=== PATIENT | female | born 1945 | race Caucasian/White ===

== ENCOUNTER 2020-05-05 09:18 | Inpatient (IN) | payer MEDICARE, OTHER ==
[2020-05-05] MEDS ORDERED: KETOROLAC 15 MG/ML 1 ML VIAL IVP STA (09:23)
[2020-05-05] MEDS ORDERED: ORPHENADRINE 30 MG/ML 2 ML VIAL IVP STA (09:23)
[2020-05-05] MEDS ORDERED: SODIUM CHLORIDE 0.9% 1,000 ML IV STA (09:23)
[2020-05-05] MEDS ORDERED: SODIUM CHLORIDE 0.9% 500 ML 500 ML IV STA (09:23)
--- NOTE | 2020-05-05 09:28 | ED ---
Back Pain HPI - General Stated Complaint: back pain Time Seen by Provider: 05/05/20 09:18 Source: patient, EMS, RN notes reviewed Mode of arrival: EMS - History of Present Illness Initial Comments: This is a 75-year-old female with a history of sciatica who states she's been having pain for last several days. She states she had physical therapy yesterday and the pain is worse afterwards. The pain is very severe 10/10 severity sharp radiating into her left buttock. He was given morphine as well as Zofran and route with some improvement. She had been complaining of nausea vomiting. She was prescribed dexamethasone of Flexeril with a the first doses being taken last evening. No reports of fevers chills sweats. No dysuria no loss of function to the upper or lower extremities. No abdominal pain. There did seem to be some change in her mental status which is related to the new medication. MD Complaint: back pain - Related Data Home Medications Medication Instructions Recorded Confirmed Acetaminophen-Codeine 300-30mg 1 tab PO Q8H PRN 05/05/20 05/05/20 [Tylenol w/codeine #3] Aspirin EC [Ecotrin Low Dose] 81 mg PO BID 05/05/20 05/05/20 Atorvastatin [Lipitor] 40 mg PO DAILY 05/05/20 05/05/20 Baclofen [Lioresal] 10 mg PO DAILY 05/05/20 05/05/20 Citalopram Hydrobromide [CeleXA] 20 mg PO DAILY 05/05/20 05/05/20 Cranberry Fruit Concentrate [Azo 500 mg PO DAILY 05/05/20 05/05/20 Cranberry] Cyclobenzaprine [Flexeril] 10 mg PO TID PRN 05/05/20 05/05/20 Dexamethasone [Decadron] 4 mg PO BID 05/05/20 05/05/20 Ergocalciferol [Vitamin D2] 50,000 unit PO Q14D 05/05/20 05/05/20 Ezetimibe [Zetia] 10 mg PO DAILY 05/05/20 05/05/20 HYDROcodone/APAP 5-325MG [Mary D 1 tab PO Q6H PRN 05/05/20 05/05/20 5-325] Hydrocortisone [Anusol-Hc] 1 applic RECTAL BID PRN 05/05/20 05/05/20 LORazepam [Ativan] 1 mg PO HS 05/05/20 05/05/20 Levothyroxine Sodium [Synthroid] 50 mcg PO DAILY 05/05/20 05/05/20 Metoprolol Tartrate [Lopressor] 50 mg PO DAILY 05/05/20 05/05/20 Multivitamins, Thera [Multivitamin 1 tab PO DAILY 05/05/20 05/05/20 (formulary)] Omeprazole 40 mg PO DAILY 05/05/20 05/05/20 Triamterene-Hctz 37.5-25Mg 1 cap PO DAILY 05/05/20 05/05/20 [Dyazide 37.5-25 Capsule] Allergies Allergy/AdvReac Type Severity Reaction Status Date / Time No Known Allergies Allergy Verified 05/05/20 11:29 Review of Systems ROS Statement: Those systems with pertinent positive or pertinent negative responses have been documented in the HPI. ROS Other: All systems not noted in ROS Statement are negative. General Exam - General Exam Comments Initial Comments: This is a well-developed well-nourished awake alert but somewhat confused female Limitations: physical limitation General appearance: alert, anxious, in distress Head exam: Present: atraumatic, normocephalic, normal inspection Eye exam: Present: normal appearance, PERRL, EOMI. Absent: scleral icterus, conjunctival injection, periorbital swelling ENT exam: Present: mucous membranes dry Neck exam: Present: normal inspection. Absent: tenderness, meningismus, lymphadenopathy Respiratory exam: Present: normal lung sounds bilaterally. Absent: respiratory distress, wheezes, rales, rhonchi, stridor Cardiovascular Exam: Present: normal rhythm, tachycardia, normal heart sounds. Absent: systolic murmur, diastolic murmur, rubs, gallop, clicks GI/Abdominal exam: Present: soft, normal bowel sounds. Absent: distended, tenderness, guarding, rebound, rigid, bruit, pulsatile mass Rectal exam: Present: deferred Extremities exam: Present: normal inspection, tenderness (Tenderness palpation of left gluteus to sciatic outlet. Decreased range of motion secondary to pain), normal capillary refill. Absent: full ROM, pedal edema, joint swelling, calf tenderness Back exam: Present: normal inspection Neurological exam: Present: alert, altered, CN II-XII intact. Absent: motor sensory deficit Psychiatric exam: Present: normal affect, anxious Skin exam: Present: warm, dry, intact, normal color. Absent: rash Course Vital Signs 05/05/20 05/05/20 05/05/20 09: 10:41 11:17 Temperature 98.6 F Pulse Rate 111 H 991 H 89 Respiratory 18 6 L 16 Rate Blood Pressure 186/91 138/68 137/66 O2 Sat by Pulse 100 100 95 Oximetry Medical Decision Making - Medical Decision Making Patient states her pain is somewhat better. Patient does seem to have some flight of ideas. CT imaging was negative. The patient will be admitted I discuss case with Dr. Berumen who did come the emergency department see the patient. Patient will be admitted for evaluation of confusional state and intractable sciatic pain. She has renal insufficiency I have no current labs to compare. A d-dimer is likely elevated on this basis - Lab Data Result diagrams: 05/05/20 09:31 05/05/20 09:31 Lab Results 05/05/20 05/05/20 05/05/20 Range/Units 09:31 09:31 09:31 WBC 8.7 (3.8-10.6) k/uL RBC 4.07 (3.80-5.40) m/uL Hgb 12.4 (11.4-16.0) gm/dL Hct 38.7 (34.0-46.0) % MCV 95.0 (80.0-100.0) fL MCH 30.3 (25.0-35.0) pg MCHC 31.9 (31.0-37.0) g/dL RDW 13.6 (11.5-15.5) % Plt Count 209 (150-450) k/uL Neutrophils % 88 % Lymphocytes % 10 % Monocytes % 1 % Eosinophils % 1 % Basophils % 0 % Neutrophils # 7.7 (1.3-7.7) k/uL Lymphocytes # 0.9 L (1.0-4.8) k/uL Monocytes # 0.1 (0-1.0) k/uL Eosinophils # 0.0 (0-0.7) k/uL Basophils # 0.0 (0-0.2) k/uL D-Dimer (<0.60) mg/L FEU Sodium 142 (137-145) mmol/L Potassium 4.1 (3.5-5.1) mmol/L Chloride 108 H (98-107) mmol/L Carbon Dioxide 24 (22-30) mmol/L Anion Gap 10 mmol/L BUN 38 H (7-17) mg/dL Creatinine 1.63 H (0.52-1.04) mg/dL Est GFR (CKD-EPI)AfAm 35 (>60 ml/min/1.73 sqM) Est GFR (CKD-EPI)NonAf 31 (>60 ml/min/1.73 sqM) Glucose 172 H (74-99) mg/dL POC Glucose (mg/dL) (75-99) mg/dL POC Glu [employer] ID Calcium 9.3 (8.4-10.2) mg/dL Magnesium 1.6 (1.6-2.3) mg/dL Total Bilirubin 0.7 (0.2-1.3) mg/dL AST 25 (14-36) U/L ALT 19 (4-34) U/L Alkaline Phosphatase 74 (38-126) U/L Ammonia (<30) umol/L Creatine Kinase 68 (30-135) U/L Total Protein 7.0 (6.3-8.2) g/dL Albumin 4.2 (3.5-5.0) g/dL Lipase (23-300) U/L Urine Color Yellow Urine Appearance Cloudy H (Clear) Urine pH 5.5 (5.0-8.0) Ur Specific Kelly 1.019 (1.001-1.035) Urine Protein Negative (Negative) Urine Glucose (UA) Negative (Negative) Urine Ketones Negative (Negative) Urine Blood Negative (Negative) Urine Nitrite Negative (Negative) Urine Bilirubin Negative (Negative) Urine Urobilinogen <2.0 (<2.0) mg/dL Ur Leukocyte Esterase Moderate H (Negative) Urine RBC 3 (0-5) /hpf Urine WBC 7 H (0-5) /hpf Ur Squamous Epith Cells 6 H (0-4) /hpf Urine Bacteria Rare H (None) /hpf Hyaline Casts 8 H (0-2) /lpf Urine Mucus Rare H (None) /hpf 05/05/20 05/05/20 05/05/20 Range/Units 09:31 09:48 09:48 WBC (3.8-10.6) k/uL RBC (3.80-5.40) m/uL Hgb (11.4-16.0) gm/dL Hct (34.0-46.0) % MCV (80.0-100.0) fL MCH (25.0-35.0) pg MCHC (31.0-37.0) g/dL RDW (11.5-15.5) % Plt Count (150-450) k/uL Neutrophils % % Lymphocytes % % Monocytes % % Eosinophils % % Basophils % % Neutrophils # (1.3-7.7) k/uL Lymphocytes # (1.0-4.8) k/uL Monocytes # (0-1.0) k/uL Eosinophils # (0-0.7) k/uL Basophils # (0-0.2) k/uL D-Dimer 1.01 H (<0.60) mg/L FEU Sodium (137-145) mmol/L Potassium (3.5-5.1) mmol/L Chloride (98-107) mmol/L Carbon Dioxide (22-30) mmol/L Anion Gap mmol/L BUN (7-17) mg/dL Creatinine (0.52-1.04) mg/dL Est GFR (CKD-EPI)AfAm (>60 ml/min/1.73 sqM) Est GFR (CKD-EPI)NonAf (>60 ml/min/1.73 sqM) Glucose (74-99) mg/dL POC Glucose (mg/dL) (75-99) mg/dL POC Glu [employer] ID Calcium (8.4-10.2) mg/dL Magnesium (1.6-2.3) mg/dL Total Bilirubin (0.2-1.3) mg/dL AST (14-36) U/L ALT (4-34) U/L Alkaline Phosphatase (38-126) U/L Ammonia <9 (<30) umol/L Creatine Kinase (30-135) U/L Total Protein (6.3-8.2) g/dL Albumin (3.5-5.0) g/dL Lipase 75 (23-300) U/L Urine Color Urine Appearance (Clear) Urine pH (5.0-8.0) Ur Specific Kelly (1.001-1.035) Urine Protein (Negative) Urine Glucose (UA) (Negative) Urine Ketones (Negative) Urine Blood (Negative) Urine Nitrite (Negative) Urine Bilirubin (Negative) Urine Urobilinogen (<2.0) mg/dL Ur Leukocyte Esterase (Negative) Urine RBC (0-5) /hpf Urine WBC (0-5) /hpf Ur Squamous Epith Cells (0-4) /hpf Urine Bacteria (None) /hpf Hyaline Casts (0-2) /lpf Urine Mucus (None) /hpf 05/05/20 Range/Units 09:51 WBC (3.8-10.6) k/uL RBC (3.80-5.40) m/uL Hgb (11.4-16.0) gm/dL Hct (34.0-46.0) % MCV (80.0-100.0) fL MCH (25.0-35.0) pg MCHC (31.0-37.0) g/dL RDW (11.5-15.5) % Plt Count (150-450) k/uL Neutrophils % % Lymphocytes % % Monocytes % % Eosinophils % % Basophils % % Neutrophils # (1.3-7.7) k/uL Lymphocytes # (1.0-4.8) k/uL Monocytes # (0-1.0) k/uL Eosinophils # (0-0.7) k/uL Basophils # (0-0.2) k/uL D-Dimer (<0.60) mg/L FEU Sodium (137-145) mmol/L Potassium (3.5-5.1) mmol/L Chloride (98-107) mmol/L Carbon Dioxide (22-30) mmol/L Anion Gap mmol/L BUN (7-17) mg/dL Creatinine (0.52-1.04) mg/dL Est GFR (CKD-EPI)AfAm (>60 ml/min/1.73 sqM) Est GFR (CKD-EPI)NonAf (>60 ml/min/1.73 sqM) Glucose (74-99) mg/dL POC Glucose (mg/dL) 154 H (75-99) mg/dL POC Glu [employer] ID Yolanda Mae Calcium (8.4-10.2) mg/dL Magnesium (1.6-2.3) mg/dL Total Bilirubin (0.2-1.3) mg/dL AST (14-36) U/L ALT (4-34) U/L Alkaline Phosphatase (38-126) U/L Ammonia (<30) umol/L Creatine Kinase (30-135) U/L Total Protein (6.3-8.2) g/dL Albumin (3.5-5.0) g/dL Lipase (23-300) U/L Urine Color Urine Appearance (Clear) Urine pH (5.0-8.0) Ur Specific Kelly (1.001-1.035) Urine Protein (Negative) Urine Glucose (UA) (Negative) Urine Ketones (Negative) Urine Blood (Negative) Urine Nitrite (Negative) Urine Bilirubin (Negative) Urine Urobilinogen (<2.0) mg/dL Ur Leukocyte Esterase (Negative) Urine RBC (0-5) /hpf Urine WBC (0-5) /hpf Ur Squamous Epith Cells (0-4) /hpf Urine Bacteria (None) /hpf Hyaline Casts (0-2) /lpf Urine Mucus (None) /hpf - Radiology Data Radiology results: report reviewed (I did discuss the initial imaging with the patient and family present. No acute findings), image reviewed Disposition Clinical Impression: Acute confusional state, Intractable low back pain, Sciatica, Renal insufficiency syndrome Disposition: ADMITTED IP TO THIS [facility] Condition: Fair Referrals: Korey Gupta MD [Primary Care Provider] - 1-2 days
[2020-05-05 09:48] LABS: Basophils % (A) 0 %; Eosinophils % (A) 1 %; HCT 38.7 % (34.0-46.0); HGB 12.4 gm/dL (11.4-16.0); Lymphocytes # (A) 0.9 k/uL (1.0-4.8); Lymphocytes % (A) 10 %; MCH 30.3 pg (25.0-35.0); MCHC 31.9 g/dL (31.0-37.0); Mean Platelet Volume 7.8; Monocytes # (A) 0.1 k/uL (0-1.0); Monocytes % (A) 1 %; Neutrophils # (A) 7.7 k/uL (1.3-7.7); Neutrophils % (A) 88 %; Platelet Count 209 k/uL (150-450); RBC 4.07 m/uL (3.80-5.40); RDW 13.6 % (11.5-15.5); WBC 8.7 k/uL (3.8-10.6)
[2020-05-05 09:53] LABS: Glucose,Whole Blood 154 mg/dL (75-99)
[2020-05-05 10:01] LABS: Albumin 4.2 g/dL (3.5-5.0); Calcium 9.3 mg/dL (8.4-10.2); Magnesium 1.6 mg/dL (1.6-2.3); Potassium 4.1 mmol/L (3.5-5.1); Total Bilirubin 0.7 mg/dL (0.2-1.3)
--- NOTE | 2020-05-05 10:31 | CT ---
EXAMINATION TYPE: CT brain wo con DATE OF EXAM: 05/05/2020 COMPARISON: None HISTORY: Confusion per patient family CT DLP: 1202.[address] of the brain was performed. The ventricles, basal cisterns and sulci overlying the cerebral convexities demonstrate mild enlargem ent. There is no evidence for intracranial hemorrhage or sulcal effacement. There is decreased attenuation about the periventricular white matter and deep white matter of both c erebral hemispheres, compatible with chronic small vessel ischemia. Differential diagnosis does inclu de demyelination. No mass effects are seen.No midline shift. Osseous calvarium is intact. If symptoms persist consider MRI. IMPRESSION: 1. Age related atrophic and chronic small vessel ischemic change without acute intracranial process s een at this time.
--- NOTE | 2020-05-05 10:54 | XR ---
EXAMINATION TYPE: XR chest 2V DATE OF EXAM: 05/05/2020 COMPARISON: None HISTORY: 75-year-old female with pain TECHNIQUE: AP and lateral views FINDINGS: Low lung volumes with crowded vascular markings. Heart size likely accentuated due to AP technique an d low lung volumes. Likely borderline enlarged. Diffuse interstitial prominence. No ncio consolidati on or pleural effusion. Median sternotomy wires and post-CABG clips. IMPRESSION: Hypoventilatory and suspected chronic changes. Correlate to exclude bronchitis or chronic asthma. Bor derline heart size. Prior CABG changes.
[2020-05-05 11:09] LABS: Appearance,Urine Cloudy (Clear); Bacteria,Urine Rare /hpf; Bilirubin,Urine Negative (Negative); Blood,Urine Negative (Negative); Color,Urine Yellow; Glucose,Urine (UA) Negative (Negative); Hyaline Casts,Urine 8 /lpf (0-2); Ketones,Urine Negative (Negative); Leukocyte Esterase,Urine Moderate (Negative); Mucus,Urine Rare /hpf; Nitrite,Urine Negative (Negative); PH, Urine 5.5 (5.0-8.0); Protein,Urine Negative (Negative); RBC,Urine 3 /hpf (0-5); Specific Gravity,Urine 1.019 (1.001-1.035); Squamous Epithelial Cell,Urine 6 /hpf (0-4); Urobilinogen,Urine <2.0 mg/dL (<2.0); WBC,Urine 7 /hpf (0-5)
[2020-05-05] MEDS ORDERED: NALOXONE 0.4 MG/ML 1 ML VIAL IV PRN ×2 (11:30→12:05)
[2020-05-05] MEDS ORDERED: HYDROmorphone 1 MG/ML 1 ML SYRINGE IVP PRN (12:05)
[2020-05-05] MEDS ORDERED: ONDANSETRON 4 MG/2 ML VIAL IVP PRN (12:05)
[2020-05-05] MEDS: HYDROmorphone 0.5 MG/0.5 ML SYRINGE IVP PRN ×3 (12:19→20:17)
--- NOTE | 2020-05-05 13:51 | P.HPIM ---
History of Present Illness H&P Date: 05/05/20 75 years old female patient of Dr. Gupta with past medical history of coronary artery disease status post three-vessel coronary artery bypass graft in 1995, GERD, hyperlipidemia, hypertension, history of diverticulitis, constipation history of UTI, hypothyroidism, borderline diabetes, comes in today with acute on chronic left-sided sciatica for the past 6 months. Patient was undergoing physical therapy as outpatient for the past few weeks. She did have a mechanical fall 4 months ago in the garden there she tripped over a stone and hit her face. She denies any back injury in the past few weeks. She did have significant pain in her left leg for the past several days. She did went to physical therapy yesterday and had manipulation of the spine. The pain got worse after the physical therapy session and patient could not drive herself home. Patient's daughter drove her home. Patient is unable to walk or put weight on her lower extremity due to the extreme pain. Dr. Gupta was called yesterday for prescribed dexamethasone, Flexeril and Wallace for the pain. Patient slept well overnight and took first dose yesterday. Patient leg pain worsened this morning radiating to her left buttock and her left ankle. Since the pain had significantly worsened patient decided to come to the ER. She did receive morphine in the hospital with some improvement. Patient was also noted to have change in mental status including confusion. Son at bedside states that patient is usually very alert but since morning it appears patient is having a different conversation with her son and it takes a while for the patient to respond. She is noted to be incontinent and has word finding difficulty and delay in response to the questions. Brain CT was negative for any acute changes patient did have atrophic and chronic small vessel ischemic changes. Chest x- ray suggests I went very and suspected chronic changes with possible chronic bronchitis of chronic asthma and prior CABG changes. Labs were ordered the WBC of 8.7 hemoglobin 12.4 d-dimer 1.01 BUN of 38 creatinine 1.63 glucose of 172 UA was positive for leukocyte esterase and WBCs and hyaline cast. Patient initiated on Rocephin, IV fluids at 75 mL per hour. Neurology consulted because of change in mental status which appears likely secondary to the medications. Stat CT of the lumbar spine ordered to rule out herniation or fracture.. Ultrasound of the kidneys ordered as patient's acute kidney injury. Chemistry ordered and patient will be monitored in the Medr unit. Review of Systems Constitutional: Denies chills, Denies fever, Denies lethargy, Denies malaise, Denies poor appetite, Denies weakness, Denies weight loss Eyes: denies decreased vision, denies diplopia, denies discharge, denies pain Ears: deny: decreased hearing Ears, nose, mouth and throat: Denies dental pain, Denies headache, Denies nasal discharge, Denies nose pain Cardiovascular: Denies chest pain, Denies decreased exercise tolerance, Denies edema, Denies high blood pressure, Denies irregular heart beat, Denies palpitations, Denies paroxysmal nocturnal dyspnea, Denies rapid heart beat, Denies shortness of breath Respiratory: Denies congestion, Denies cough, Denies cough with sputum, Denies dyspnea, Denies home oxygen, Denies wheezing Gastrointestinal: Denies abdominal pain, Denies change in bowel habits, Denies coffee ground emesis, Denies early satiety, Denies excessive gas, Denies heartburn, Denies hematemesis, Denies hematochezia, Denies loss of appetite, Denies nausea, Denies vomiting Genitourinary: Denies dysuria, Denies flank pain, Denies kidney stones, Denies menorrhagia, Denies urgency, Denies urinary frequency Musculoskeletal: Endorses gait dysfunction, endorses limitation of motion, Denies morning stiffness, endorses muscle cramps endorses back pain and radiculopathy Integumentary: Denies rash, Denies wounds, Denies brittle nails, Denies change in hair/nails, Denies darkening of skin Neurological: Denies balance difficulties, Denies change in speech, Denies double vision, Denies gait dysfunction, Denies loss of vision, Denies motor disturbance, Denies numbness, Denies paralysis, Denies paresthesias, Denies seizures Psychiatric: Denies anxiety, Denies depression Endocrine: Denies excessive sweating, Denies excessive thirst, Denies high blood sugars, Denies palpitations Hematologic/Lymphatic: Denies easy bruising, Denies lymphadenopathy Past Medical History Past Medical History: Coronary Artery Disease (CAD), GERD/Reflux, Hyperlipidemia, Hypertension, Pneumonia Additional Past Medical History / Comment(s): L side sciatica approximately past 6 months, "borderline diabetes", diverticular disease, constipation, past UTIs, occasional bilateral leg edema, hypothyroid. History of Any Multi-Drug Resistant Organisms: None Reported Past Surgical History: Appendectomy, Coronary Bypass/CABG, Heart Catheteriza tion, Hysterectomy Additional Past Surgical History / Comment(s): 3 vessel CABG in 1995, colonoscopy Past Anesthesia/Blood Transfusion Reactions: No Reported Reaction Additional Past Anesthesia/Blood Transfusion Reaction / Comment(s): Unsure if pt received blood with CABG Past Psychological History: Anxiety Additional Psychological History / Comment(s): Pt resides alone. She has recently been using a walker. She normally drives and is independent. Smoking Status: Former smoker Past Alcohol Use History: Occasional Additional Past Alcohol Use History / Comment(s): Pt started smoking in 1965 and quit in 1995. She drinks wine occasionally, she states socially. Past Drug Use History: None Reported - Past Family History Father Family Medical History: Myocardial Infarction (HI) Additional Family Medical History / Comment(s): Father from a HI at the age of 56yrs. Mother Family Medical History: CVA/TIA, Respiratory Disorder Additional Family Medical History / Comment(s): Mother had TB prior to pt being born. Medications and Allergies Home Medications Medication Instructions Recorded Confirmed Type Acetaminophen-Codeine 300-30mg 1 tab PO Q8H PRN 05/05/20 05/05/20 History [Tylenol w/codeine #3] Aspirin EC [Ecotrin Low Dose] 81 mg PO BID 05/05/20 05/05/20 History Atorvastatin [Lipitor] 40 mg PO DAILY 05/05/20 05/05/20 History Baclofen [Lioresal] 10 mg PO DAILY 05/05/20 05/05/20 History Citalopram Hydrobromide [CeleXA] 20 mg PO DAILY 05/05/20 05/05/20 History Cranberry Fruit Concentrate [Azo 500 mg PO DAILY 05/05/20 05/05/20 History Cranberry] Cyclobenzaprine [Flexeril] 10 mg PO TID PRN 05/05/20 05/05/20 History Dexamethasone [Decadron] 4 mg PO BID 05/05/20 05/05/20 History Ergocalciferol [Vitamin D2] 50,000 unit PO Q14D 05/05/20 05/05/20 History Ezetimibe [Zetia] 10 mg PO DAILY 05/05/20 05/05/20 History HYDROcodone/APAP 5-325MG [Wallace 1 tab PO Q6H PRN 05/05/20 05/05/20 History 5-325] Hydrocortisone [Anusol-Hc] 1 applic RECTAL BID PRN 05/05/20 05/05/20 History LORazepam [Ativan] 1 mg PO HS 05/05/20 05/05/20 History Levothyroxine Sodium [Synthroid] 50 mcg PO DAILY 05/05/20 05/05/20 History Metoprolol Tartrate [Lopressor] 50 mg PO DAILY 05/05/20 05/05/20 History Multivitamins, Thera [Multivitamin 1 tab PO DAILY 05/05/20 05/05/20 History (formulary)] Omeprazole 40 mg PO DAILY 05/05/20 05/05/20 History Triamterene-Hctz 37.5-25Mg 1 cap PO DAILY 05/05/20 05/05/20 History [Dyazide 37.5-25 Capsule] Allergies Allergy/AdvReac Type Severity Reaction Status Date / Time No Known Allergies Allergy Verified 05/05/20 11:29 Physical Exam Vitals: Vital Signs Temp Pulse Pulse Resp BP BP Pulse Ox 05/05/20 13:09 98.1 F 91 18 173/78 94 L 05/05/20 12:59 97.9 F 05/05/20 12:00 91 20 143/67 95 05/05/20 11:17 89 16 137/66 95 05/05/20 10:41 991 H 6 L 138/68 100 05/05/20 09:20 98.6 F 111 H 18 186/91 100 Intake and Output 05/04/20 05/05/20 05/05/20 22:59 06:59 14:59 Other: Weight 108.862 kg - Constitutional General appearance: cooperative, severe acute distress - EENT Eyes: anicteric sclerae, PERRLA, normal appearance ENT: hearing grossly normal - Neck Neck: no lymphadenopathy, normal ROM, no other, no rigidity, no stridor, no thyromegaly - Respiratory Respiratory: bilateral: CTA, negative: diminished, dullness, rales, rhonchi - Cardiovascular Rhythm: regular Heart sounds: normal: S1, S2 Abnormal Heart Sounds: no systolic murmur, no diastolic murmur, no rub, no S3 Gallop, no S4 Gallop, no click, no other - Gastrointestinal General gastrointestinal: normal bowel sounds, soft nontender - Integumentary Integumentary: no rash - Neurologic Neurologic: CNII-XII intact - Musculoskeletal Musculoskeletal: Gait could not be assessed patient has difficulty lifting her left leg due to the extreme pain., Strength in the right lower extremity within normal limits no sensory deficit noted. Tone normal - Psychiatric Psychiatric: A&O x's 3, appropriate affect Results CBC & Chem 7: 05/05/20 09:05/05/20 09:31 Labs: Abnormal Lab Results - Last 24 Hours (Table) 05/05/20 05/05/20 05/05/20 Range/Units : 09: 09:31 Lymphocytes # 0.9 L (1.0-4.8) k/uL D-Dimer (<0.60) mg/L FEU Chloride 108 H (98-107) mmol/L BUN 38 H (7-17) mg/dL Creatinine 1.63 H (0.52-1.04) mg/dL Glucose 172 H (74-99) mg/dL POC Glucose (mg/dL) (75-99) mg/dL Urine Appearance Cloudy H (Clear) Ur Leukocyte Esterase Moderate H (Negative) Urine WBC 7 H (0-5) /hpf Ur Squamous Epith Cells 6 H (0-4) /hpf Urine Bacteria Rare H (None) /hpf Hyaline Casts 8 H (0-2) /lpf Urine Mucus Rare H (None) /hpf 05/05/20 05/05/20 Range/Units 09:48 09:51 Lymphocytes # (1.0-4.8) k/uL D-Dimer 1.01 H (<0.60) mg/L FEU Chloride (98-107) mmol/L BUN (7-17) mg/dL Creatinine (0.52-1.04) mg/dL Glucose (74-99) mg/dL POC Glucose (mg/dL) 154 H (75-99) mg/dL Urine Appearance (Clear) Ur Leukocyte Esterase (Negative) Urine WBC (0-5) /hpf Ur Squamous Epith Cells (0-4) /hpf Urine Bacteria (None) /hpf Hyaline Casts (0-2) /lpf Urine Mucus (None) /hpf Thrombosis Risk Factor Assmnt - DVT/VTE Prophylaxis DVT/VTE Prophylaxis: Pharmacologic Prophylaxis ordered - Choose All That Apply Any of the Below Risk Factors Present?: Yes Each Factor Represents 1 point: Obesity (BMI >25) Other Risk Factors: Yes Each Risk Factor Represents 3 Points: Age 75 years or older Other congenital or acquired thrombophilia - If yes, enter type in comment: No Thrombosis Risk Factor Assessment Total Risk Factor Score: 4 Thrombosis Risk Factor Assessment Level: Moderate Risk Assessment and Plan Plan: #1 acute thoracolumbar radiculopathy on the left. Dilaudid 0.5 mg iv every 3 hours for pain control. Stat CT lumbar spine ordered to rule out herniation versus fracture. Dr. Moseley consulted. consult pain specialist for steroid injection. Continue baclofen 10 mg 3 times a day. Hold Flexeril and dexamethasone. Hold Toradol as patient has JC #2 acute toxic metabolic encephalopathy. CT negative for any acute stroke. Neurology consulted for encephalopathy. Hold dexamethasone and Flexeril as it could have contributed to the change in mental status. Hold Ativan #3 acute renal failure likely secondary to dehydration and diuretics hold Dyazide continue IV fluids at 75 mL per hour status was one year. Patient's baseline creatinine not known. Continue to avoid nephrotoxic agent avoid Toradol for pain control #4 UTI Rocephin initiated at 1 g every 24 hours continue IV fluids at 75 mL/h #5 history of coronary artery disease status post CABG in 1993 continue aspirin 81 mg, continue Lipitor 40 mg by mouth daily, continue Zetia, continue metoprolol #6 history of depression continue Celexa 20 mg by mouth daily #7 history of hypothyroidism continue Synthyroid at 50 g by mouth daily #8 GERD continue omeprazole 40 mg by mouth daily #9 DVT prophylaxis with heparin every 12 #10 cord status full code #11 disposition patient needs at least 1-2 inpatient nights for stabilization
--- NOTE | 2020-05-05 14:19 | US ---
EXAMINATION TYPE: US kidneys/renal and bladder DATE OF EXAM: 05/05/2020 COMPARISON: NONE CLINICAL HISTORY: JC. JC EXAM MEASUREMENTS: Right Kidney: 9.3 x 5.4 x 4.1 cm Left Kidney: 9.5 x 5.4 x 4.4 cm Very difficult exam, large pt body habitus unable to move Right Kidney: Limited views show cortical thinning, No evidence of hydro Left Kidney: Limited views show cortical thinning, No evidence of hydronephrosis. Cortical echogenici ty appears increased. Bladder: wnl Bilateral Jets seen: No There is no evidence for hydronephrosis at this point in time. No nephrolithiasis is seen. No zayra s are identified. The urinary bladder is anechoic. Bilateral ureteral jets are not seen. IMPRESSION: Limited exam. Correlate for possible medical renal disease. No hydronephrosis evident.
[2020-05-05] MEDS: BACLOFEN 10 MG TAB PO SCH ×2 (15:02→20:17)
--- NOTE | 2020-05-05 15:03 | CT ---
EXAMINATION TYPE: CT lumbar spine wo con DATE OF EXAM: 05/05/2020 2:54 PM COMPARISON: None HISTORY: Intractable back pain. CT DLP: 891 mGycm Automated exposure control for dose reduction was used. Unenhanced CT of the lumbar spine was performed. Bone and soft tissue window settings are submitted as well as coronal and sagittal reconstructions. L1-L2: Normal disc space height. No disc herniation protrusion or central stenosis. No facet joint arthropathy. No evidence for foraminal encroachment. L2-L3: Vacuum disc changes noted. Posterior disc bulge. Hypertrophy ligamentum flavum and facet joint arthropathy resulting in mild central stenosis. L3-L4: Vacuum disc changes noted. Posterior disc bulge. Hypertrophy ligamentum flavum and facet joint arthropathy resulting in mild central stenosis. L4-L5: Grade 1 anterolisthesis L4 and L5 of 3 mm. Posterior disc bulge. Hypertrophy ligamentum flavum and facet joint arthropathy resulting in severe central stenosis. L5-S1: Vacuum disc posterior disc bulge. Bilateral lateral recess stenosis. No evidence for central s tenosis. Bilateral foraminal encroachment. IMPRESSION: 1. Multilevel degenerative disc disease with multilevel central stenosis greatest at L4-5.
--- NOTE | 2020-05-05 17:18 | P.CNNES ---
History of Present Illness Consult date: 05/05/20 Reason for Consult: Confusion, difficulty with words History of Present Illness: This is a 75-year-old right-handed female with medical history of coronary artery disease status post CABG in 1995, hyperlipidemia, hypertension, diverticulitis, UTI, borderline diabetes, Ex-tobacco use, sciatica who presented emergency department on 05/05/2020 for left buttock pain radiating down left ankle for past 3 day. History obtained from patient and her friend who is at bedside. Pain is 10/10 and is excruciating. Yesterday the patient went to physical therapy and had manipulation of the spine. The pain got worse after the physical therapy and the patient could not drive herself home. Her primary care physician prescribed dexamethasone, Flexeril and [place] for the pain yesterday which she took at night. Today she woke up at 745 and that was having word finding difficulty. She also woke up with this excruciating left buttock pain rating down to the ankle. So she decided to come to emergency department. She had an episode of nausea vomiting. Per the patient as well as her friend that she is sharp. She denies any weakness any visual disturbance difficulty swallowing. She did have numbness in the left the ankle but the she this was associated with her left buttocks pain. She denies any history of stroke or TIAs. In the ED the patient had CT of the head which was reported as age-related atrophic and chronic small vessel ischemic change without acute intracranial process seen at this time. CT lumbar spine was done and that was reported as multilevel degenerative disc disease was multiple level central stenosis greatest at L4-L5 EKG was done and was reported as normal sinus rhythm. Incomplete right bundle branch block. Inferior infarct, age undetermined. Ventricular rate of 96. The patient the received the morphine in the hospital with some improvement. Urinary analysis: Appears Cloudy leukocyte esterase was moderate nitrate was negative for bacteria was rare urine wbc is 7. Creatinine of 1.63. BMI of 38. Patient is a ex-smoker she smoked for about 20-30 years. She stopped smoking about 20 years ago. Mother had a stroke at the age of 86. Patient denies any illicit drug use and socially drinks alcohol. Review of Systems Review of system: The 12 point system was reviewed and apparent positive and negative per HPI. Past Medical History Past Medical History: Coronary Artery Disease (CAD), GERD/Reflux, Hyperlipidemia , Hypertension, Pneumonia Additional Past Medical History / Comment(s): L side sciatica approximately past 6 months, "borderline diabetes", diverticular disease, constipation, past UTIs, occasional bilateral leg edema, hypothyroid. History of Any Multi-Drug Resistant Organisms: None Reported Past Surgical History: Appendectomy, Coronary Bypass/CABG, Heart Catheterization, Hysterectomy Additional Past Surgical History / Comment(s): 3 vessel CABG in 1995, colonoscopy Past Anesthesia/Blood Transfusion Reactions: No Reported Reaction Additional Past Anesthesia/Blood Transfusion Reaction / Comment(s): Unsure if pt received blood with CABG Past Psychological History: Anxiety Additional Psychological History / Comment(s): Pt resides alone. She has recently been using a walker. She normally drives and is independent. Smoking Status: Former smoker Past Alcohol Use History: Occasional Additional Past Alcohol Use History / Comment(s): Pt started smoking in 1965 and quit in 1995. She drinks wine occasionally, she states socially. Past Drug Use History: None Reported - Past Family History Father Family Medical History: Myocardial Infarction (MT) Additional Family Medical History / Comment(s): Father from a MT at the age of 56yrs. Mother Family Medical History: CVA/TIA, Respiratory Disorder Additional Family Medical History / Comment(s): Mother had TB prior to pt being born. Medications and Allergies Home Medications Medication Instructions Recorded Confirmed Type Acetaminophen-Codeine 300-30mg 1 tab PO Q8H PRN 05/05/20 05/05/20 History [Tylenol w/codeine #3] Aspirin EC [Ecotrin Low Dose] 81 mg PO BID 05/05/20 05/05/20 History Atorvastatin [Lipitor] 40 mg PO DAILY 05/05/20 05/05/20 History Baclofen [Lioresal] 10 mg PO DAILY 05/05/20 05/05/20 History Citalopram Hydrobromide [CeleXA] 20 mg PO DAILY 05/05/20 05/05/20 History Cranberry Fruit Concentrate [Azo 500 mg PO DAILY 05/05/20 05/05/20 History Cranberry] Cyclobenzaprine [Flexeril] 10 mg PO TID PRN 05/05/20 05/05/20 History Dexamethasone [Decadron] 4 mg PO BID 05/05/20 05/05/20 History Ergocalciferol [Vitamin D2] 50,000 unit PO Q14D 05/05/20 05/05/20 History Ezetimibe [Zetia] 10 mg PO DAILY 05/05/20 05/05/20 History HYDROcodone/APAP 5-325MG [[place] 1 tab PO Q6H PRN 05/05/20 05/05/20 History 5-325] Hydrocortisone [Anusol-Hc] 1 applic RECTAL BID PRN 05/05/20 05/05/20 History LORazepam [Ativan] 1 mg PO HS 05/05/20 05/05/20 History Levothyroxine Sodium [Synthroid] 50 mcg PO DAILY 05/05/20 05/05/20 History Metoprolol Tartrate [Lopressor] 50 mg PO DAILY 05/05/20 05/05/20 History Multivitamins, Thera [Multivitamin 1 tab PO DAILY 05/05/20 05/05/20 History (formulary)] Omeprazole 40 mg PO DAILY 05/05/20 05/05/20 History Triamterene-Hctz 37.5-25Mg 1 cap PO DAILY 05/05/20 05/05/20 History [Dyazide 37.5-25 Capsule] Allergies Allergy/AdvReac Type Severity Reaction Status Date / Time No Known Allergies Allergy Verified 05/05/20 11:29 Physical Examination - Vital Signs Vital Signs: Vital Signs Temp Pulse Pulse Resp BP BP Pulse Ox 05/05/20 13:09 98.1 F 91 18 173/78 94 L 05/05/20 12:59 97.9 F 05/05/20 12:00 91 20 143/67 95 05/05/20 11:17 89 16 137/66 95 05/05/20 10:41 991 H 6 L 138/68 100 05/05/20 09:20 98.6 F 111 H 18 186/91 100 Intake and Output 05/05/20 05/05/20 05/05/20 06:59 14:59 22:59 Intake Total 75 Balance 75 Intake: Intake, IV Titration 75 Amount Sodium Chloride 0.9% 1, 75 000 ml @ 75 mls/hr IV . [id number] STA Rx#:[id number] Other: Weight 108.862 kg GENERAL: The patient is lying in bed and is mild in acute distress. CHEST: The heart rate is regular rate rhythm. No murmurs to auscultation. LUNG: Clear to auscultation bilaterally no wheezing noted throughout. Not labored breathing. ABDOMEN/GI: Bowel sounds present in all 4 quadrants. No tenderness to palpation throughout. NEUROLOGICAL: Higher mental function: The patient is awake, alert, oriented to self, place but states its 2001 then later 1995 Patient is following simple commands. But when he came to complex command I had to break it down to her for her to follow the command. Patient has Broca aphasia she had paraphasic errors. No neglect. Cranial nerves: The pupils are round, equal and reactive to light. Visual miner are full to threat throughout. Extraocular movement is intact no nystagm us is noted. Facial sensation is normal to touch throughout. The facial strength is normal throughout. Hearing is normal bilaterally to hand rub. Tongue is midline and moved [id number] without any difficulty. No dysarthria is noted. Shoulder shrug is normal bilaterally. Motor: Gait is defered. Could not assess left lower extremity fully because of buttock pain but was lifting above gravity without difficulty. Otherwise the strength is 5 over 5 throughout. Normal tone and bulk. Cerebellum: Normal finger to nose bilaterally. Sensation: Sensation is normal to touch throughout. Reflexes (right/left): 2+ of bilateral upper and right lower extremities except right ankle 1+ Plantars are mute bilaterally. NIH Stroke Scale Score: Level of consciousness 0 LOC questions 0 LOC commands 0 Best gaze 0 Visual miner 0 Facial palsy 0 Left motor arm 0 Right motor arm 0 Left motor leg 0 Right motor leg 0 Limb ataxia 0 Sensory 0 Best language 1 Dysarthria 0 Extinction and inattention 0 Total NIHSS score:1 Results AST of 25, ALC of 19. Ammonia level less than 9. - Laboratory Findings CBC and BMP: 05/05/20 09:31 05/05/20 09:31 Abnormal Lab Findings: Abnormal Labs 05/05/20 05/05/20 05/05/20 09:31 09:31 09:31 Lymphocytes # 0.9 L D-Dimer Chloride 108 H BUN 38 H Creatinine 1.63 H Glucose 172 H POC Glucose (mg/dL) Urine Appearance Cloudy H Ur Leukocyte Esterase Moderate H Urine WBC 7 H Ur Squamous Epith Cells 6 H Urine Bacteria Rare H Hyaline Casts 8 H Urine Mucus Rare H 05/05/20 05/05/20 09:48 09:51 Lymphocytes # D-Dimer 1.01 H Chloride BUN Creatinine Glucose POC Glucose (mg/dL) 154 H Urine Appearance Ur Leukocyte Esterase Urine WBC Ur Squamous Epith Cells Urine Bacteria Hyaline Casts Urine Mucus Assessment and Plan Assessment: Broca aphasia likely due to stroke Acute kidney insufficiency Suspicious of urinary tract infection Acute on chronic sciatica pain Borderline Diabetes History of coronary artery disease status post CABG History of hypertension X-Tobacco use Plan: Patient has Broca aphasia and the this Nicasio stroke and I don't think it's related to the medication effect. I'll order the stroke workup. I'll order MRI the brain, CT of the head and neck, 2-D echo lipid profile all consult [facility] as well as PT OT. Patient did not get TPA since the NIH of 1. Patient is on aspirin 81 mg twice a day and Lipitor 40 mg for her cardiac risk factor. Recommend adding Plavix. Patient's son is not bedside and the per documentation she is having the altered mental status which I did not see on my examination but if she is having change in mentation I ordered TSH, B12 folate. Also if she is having the change in mentation could be due to the new medication effect. . She's currently on Dilaudid 0.5 mg every 3 hours as needed and baclofen 10 mg 3 times a day as well as Toradol once. If possible avoid narcotics which cause altered mental status consider lidocaine patch if needed She is currently on ceftriaxone which can cause encephalopathy of possible avoid the cephalosporin. Plan was discussed with the patient as well as her friend. Thank you for the consult. Luca Alcantar M.D. Neuro-hospitalist Time with Patient: Greater than 30
[2020-05-05] MEDS: CLOPIDOGREL 75 MG TAB PO SCH (19:00)
[2020-05-05] MEDS: ASPIRIN 81 MG PO SCH (20:16)
[2020-05-05] MEDS ORDERED: LORazepam 0.5 MG TAB PO SCH (21:00)
[2020-05-05] MEDS ORDERED: LORazepam 1 MG TAB PO SCH (21:00)
--- NOTE | 2020-05-05 22:18 | CT ---
EXAMINATION TYPE: CT angio head neck DATE OF EXAM: 05/05/2020 COMPARISON: None HISTORY: Aphasia. CT DLP: 502.2 mGycm Automated exposure control for dose reduction was used. CONTRAST: Performed with IV Contrast, patient injected with 65ml mL of Isovue 370. Images were obtained from the aortic arch to the vertex of the brain with IV contrast and 3-D post pr ocessed images. There is normal branching pattern of the great vessels on the aortic arch. There is bilateral arteria l flow in the subclavian arteries. There is arterial flow in the common internal and external carotid arteries bilaterally. There is arterial flow in both vertebral arteries. There is tortuosity and kin charisma of the proximal right internal carotid artery. There is more than 50% stenosis at the origin of the right internal carotid artery due to plaque formation. There is mild plaque on the left side and approximate 35% stenosis of the left internal carotid artery. There is tortuosity and redundancy of b oth internal carotid arteries. There is arterial flow in the vertebrobasilar artery system. Basilar artery fills mostly from the lef t side. There is arterial flow in the anterior middle and posterior cerebral arteries. I see no evide nce of hemodynamic stenosis. There is no evidence of intracranial aneurysm or neovascularity. There i s no mass effect. There is normal contrast opacification of the venous sinuses. IMPRESSION: Plaque formation and more than 50% and probably 70% stenosis of the proximal right internal carotid a rtery. Approximate 35% stenosis of the proximal left internal carotid artery. No significant intracra nial angiographic abnormality.
[2020-05-06 01:28] LABS: Folate, Serum >24.0 ng/mL
[2020-05-06] MEDS: PANTOPRAZOLE 40 MG TABLET PO SCH (06:20)
[2020-05-06] MEDS: ACETAMINOPHEN TAB 325 MG TAB PO PRN ×2 (06:20→17:42)
[2020-05-06] MEDS: LEVOTHYROXINE 50 MCG TAB PO SCH (06:20)
[2020-05-06 07:02] LABS: Cholesterol 164 mg/dL (<200); HDL Cholesterol 38 mg/dL (40-60); LDL Cholesterol,Calculated 90 mg/dL (0-99); Triglycerides 180 mg/dL (<150)
[2020-05-06] MEDS ORDERED: TRIAMTERENE-HCTZ 37.5-25MG 1 EACH CAP PO SCH (09:00)
[2020-05-06] MEDS ORDERED: ATORVASTATIN 40 MG TAB PO SCH (09:00)
[2020-05-06] MEDS ORDERED: BACLOFEN 10 MG TAB PO SCH (09:00)
--- NOTE | 2020-05-06 09:20 | P.PAINCN ---
History of Present Illness - Reason for Consult Consult date: 05/06/20 - History of Present Illness this is 75 years old female, who was admitted to [facility] with history of severe left-sided low back pain with radiation to the left lower extremity, with intensity of the pain is 10 over 10 excruciating pain, started a few days ago she was treated with chiropractic is on dexamethasone Flexeril and Igo, patient was admitted to [facility] secondary to concern about stroke, aphasia, patient was started on Plavix, she reported that the pain is in the low back area radiated to the left buttock and left hip and left lower extremity associated with numbness and tingling sensation Past Medical History Past Medical History: Coronary Artery Disease (CAD), GERD/Reflux, Hyperlipidemia, Hypertension, Pneumonia Additional Past Medical History / Comment(s): L side sciatica approximately past 6 months, "borderline diabetes", diverticular disease, constipation, past UTIs, occasional bilateral leg edema, hypothyroid. History of Any Multi-Drug Resistant Organisms: None Reported Past Surgical History: Appendectomy, Coronary Bypass/CABG, Heart Cath eterization, Hysterectomy Additional Past Surgical History / Comment(s): 3 vessel CABG in 1995, colonoscopy Past Anesthesia/Blood Transfusion Reactions: No Reported Reaction Additional Past Anesthesia/Blood Transfusion Reaction / Comm: Unsure if pt received blood with CABG Past Psychological History: Anxiety Additional Psychological History / Comment(s): Pt resides alone. She has recently been using a walker. She normally drives and is independent. Smoking Status: Former smoker Past Alcohol Use History: Occasional Additional Past Alcohol Use History / Comment(s): Pt started smoking in 1965 and quit in 1995. She drinks wine occasionally, she states socially. Past Drug Use History: None Reported - Past Family History Father Family Medical History: Myocardial Infarction (NM) Additional Family Medical History / Comment(s): Father from a [place] at the age of 56yrs. Mother Family Medical History: CVA/TIA, Respiratory Disorder Additional Family Medical History / Comment(s): Mother had TB prior to pt being born. Medications and Allergies Home Medications Medication Instructions Recorded Confirmed Type Acetaminophen-Codeine 300-30mg 1 tab PO Q8H PRN 05/05/20 05/05/20 History [Tylenol w/codeine #3] Aspirin EC [Ecotrin Low Dose] 81 mg PO BID 05/05/20 05/05/20 History Atorvastatin [Lipitor] 40 mg PO DAILY 05/05/20 05/05/20 History Baclofen [Lioresal] 10 mg PO DAILY 05/05/20 05/05/20 History Citalopram Hydrobromide [CeleXA] 20 mg PO DAILY 05/05/20 05/05/20 History Cranberry Fruit Concentrate [Azo 500 mg PO DAILY 05/05/20 05/05/20 History Cranberry] Cyclobenzaprine [Flexeril] 10 mg PO TID PRN 05/05/20 05/05/20 History Dexamethasone [Decadron] 4 mg PO BID 05/05/20 05/05/20 History Ergocalciferol [Vitamin D2] 50,000 unit PO Q14D 05/05/20 05/05/20 History Ezetimibe [Zetia] 10 mg PO DAILY 05/05/20 05/05/20 History HYDROcodone/APAP 5-325MG [Igo 1 tab PO Q6H PRN 05/05/20 05/05/20 History 5-325] Hydrocortisone [Anusol-Hc] 1 applic RECTAL BID PRN 05/05/20 05/05/20 History LORazepam [Ativan] 1 mg PO HS 05/05/20 05/05/20 History Levothyroxine Sodium [Synthroid] 50 mcg PO DAILY 05/05/20 05/05/20 History Metoprolol Tartrate [Lopressor] 50 mg PO DAILY 05/05/20 05/05/20 History Multivitamins, Thera [Multivitamin 1 tab PO DAILY 05/05/20 05/05/20 History (formulary)] Omeprazole 40 mg PO DAILY 05/05/20 05/05/20 History Triamterene-Hctz 37.5-25Mg 1 cap PO DAILY 05/05/20 05/05/20 History [Dyazide 37.5-25 Capsule] Allergies Allergy/AdvReac Type Severity Reaction Status Date / Time No Known Allergies Allergy Verified 05/05/20 11:29 Physical Exam Vitals: Vital Signs Temp Pulse Pulse Resp BP BP Pulse Ox 05/06/20 04:34 98.0 F 92 18 127/67 97 05/06/20 00:00 97.9 F 92 16 121/78 97 05/05/20 16:21 98 F 95 18 160/89 05/05/20 13:09 98.1 F 91 18 173/78 94 L 05/05/20 12:59 97.9 F 05/05/20 12:00 91 20 143/67 95 05/05/20 11:17 89 16 137/66 95 05/05/20 10:41 991 H 6 L 138/68 100 05/05/20 09:20 98.6 F 111 H 18 186/91 100 Intake and Output 05/05/20 05/06/20 05/06/20 22:59 06:59 14:59 Other: Voiding Method Incontinent Incontinent # Voids 0 0 Weight 109.3 kg Physical Examinations : -Constitutiona : Cooperative , not in acute distress . -HEENT : nech : supple , no Lymphadenopathy , normal thyroid size . : eyes : no ptosis , no icterus, no photophobia . - neurologic : Cranial nerve II to XII intact , no focal neurological deffecit . -psychatric : alert , oriented X 3 , appropriate affect , intact judgment and insight . -Lymphatic : no Lymphadenopathy . - musculoskeltal : Lumber spine moter stegnth lower extremities ,thigh and legs 5/5 Right side , 3-4/5 Left side Normal sensation in the lower extremity bilaterally deep tendon reflexes : normal Knee Jerk , normal ankle Jerk lumber facet Loading Test =positive Right , positive Left Range of motion of the lumbar spine Flexion 30 degrees, extension 10 degrees strait leg raising test = positive at 30 degree left lower extremity ,and negative on the right lower extremity Fabere test= negative Right , and positive LT . Sever tenderness over the Sacroiliac joint on the Left sides Gaenslen test= negative right ,and positive left . Seated flexion test= negative right ,and positive Left . Generalized tenderness over the lumbar paraspinal muscles more prominent on the left side Results CBC & Chem 7: 05/05/20 09:31 05/05/20 09:31 Labs: Abnormal Lab Results - Last 24 Hours (Table) 05/05/20 05/05/20 05/05/20 Range/Units 09:31 09: 09:31 Lymphocytes # 0.9 L (1.0-4.8) k/uL D-Dimer (<0.60) mg/L FEU Chloride 108 H (98-107) mmol/L BUN 38 H (7-17) mg/dL Creatinine 1.63 H (0.52-1.04) mg/dL Glucose 172 H (74-99) mg/dL POC Glucose (mg/dL) (75-99) mg/dL Triglycerides (<150) mg/dL HDL Cholesterol (40-60) mg/dL Urine Appearance Cloudy H (Clear) Ur Leukocyte Esterase Moderate H (Negative) Urine WBC 7 H (0-5) /hpf Ur Squamous Epith Cells 6 H (0-4) /hpf Urine Bacteria Rare H (None) /hpf Hyaline Casts 8 H (0-2) /lpf Urine Mucus Rare H (None) /hpf 05/05/20 05/05/20 05/06/20 Range/Units 09:48 09:51 06:04 Lymphocytes # (1.0-4.8) k/uL D-Dimer 1.01 H (<0.60) mg/L FEU Chloride (98-107) mmol/L BUN (7-17) mg/dL Creatinine (0.52-1.04) mg/dL Glucose (74-99) mg/dL POC Glucose (mg/dL) 154 H (75-99) mg/dL Triglycerides 180 H (<150) mg/dL HDL Cholesterol 38 L (40-60) mg/dL Urine Appearance (Clear) Ur Leukocyte Esterase (Negative) Urine WBC (0-5) /hpf Ur Squamous Epith Cells (0-4) /hpf Urine Bacteria (None) /hpf Hyaline Casts (0-2) /lpf Urine Mucus (None) /hpf Comments: Computed tomography scan of the lumbar spine= multilevel lumbar degenerative disc disease multilevel lumbar spondylosis with facet arthropathy And foraminal stenosis Assessment and Plan Plan: Assessment and plan=1-lumbar radiculopathy with left L4 5 and L5-S1 distribution 2-myofascial pain syndrome and lumbar paraspinal muscles. 3-left sacroiliitis. 4-lumbar spondylosis with lumbar facet arthropa thy. 5-stroke. Patient was admitted with a change in mental status and concern about stroke, and patient was started on Plavix, Patient could benefit from a left-sided transforaminal epidural steroid injection at L4 5 and L5-S1 and trigger point injection Because patient on Plavix and we have to wait until patient more stable and we can hold the Plavix for 7 days before we can proceed with any interventional pain management, and this can be done as an outpatient once the patient condition stabilized Time with Patient: Greater than 30 PQRS Measure Charge Sheet PQRS Narrative: Do You Want the Pneumonia Vaccine Up to Date Vaccine AT THIS TIME? Blood Pressure [Right Arm] 127/67 Blood Pressure 143/67 Pain Intensity [Left Buttock] 0 Pain Intensity 5 Pain Scale Used Numeric (1 - 10) Scale Used Non Verbal Pain Indicator Home Medications: Ambulatory Orders Acetaminophen-Codeine 300-30mg [Tylenol w/codeine #3] 1 tab PO Q8H PRN 05/05/20 Aspirin EC [Ecotrin Low Dose] 81 mg PO BID 05/05/20 Atorvastatin [Lipitor] 40 mg PO DAILY 05/05/20 Baclofen [Lioresal] 10 mg PO DAILY 05/05/20 Citalopram Hydrobromide [CeleXA] 20 mg PO DAILY 05/05/20 Cranberry Fruit Concentrate [Azo Cranberry] 500 mg PO DAILY 05/05/20 Cyclobenzaprine [Flexeril] 10 mg PO TID PRN 05/05/20 Dexamethasone [Decadron] 4 mg PO BID 05/05/20 Ergocalciferol [Vitamin D2] 50,000 unit PO Q14D 05/05/20 Ezetimibe [Zetia] 10 mg PO DAILY 05/05/20 HYDROcodone/APAP 5-325MG [Igo 5-325] 1 tab PO Q6H PRN 05/05/20 Hydrocortisone [Anusol-Hc] 1 applic RECTAL BID PRN 05/05/20 LORazepam [Ativan] 1 mg PO HS 05/05/20 Levothyroxine Sodium [Synthroid] 50 mcg PO DAILY 05/05/20 Metoprolol Tartrate [Lopressor] 50 mg PO DAILY 05/05/20 Multivitamins, Thera [Multivitamin (formulary)] 1 tab PO DAILY 05/05/20 Omeprazole 40 mg PO DAILY 05/05/20 Triamterene-Hctz 37.5-25Mg [Dyazide 37.5-25 Capsule] 1 cap PO DAILY 05/05/20
--- NOTE | 2020-05-06 09:29 | P.CNOR ---
History of Present Illness - [facility] Consult date: 05/06/20 Requesting physician: Kishor Pena Consult reason: low back pain, other (Left lower extremity radiculopathy) History of present illness: Patient is a very pleasant 75-year-old female who is seen and examined at bedside in regards to her lumbar spine. Consultation placed for intractable low back pain and left lower extremity radiculopathy. Patient is currently undergoing workup for stroke evaluation. She feels somewhat more like herself this morning but does have difficulty formulating some words. She was having significant difficulty yesterday. She is being seen by neurology who is doing further testing for stroke evaluation. She states she is known have some ongo ing low back pain and left lower extremity radiculopathy over the past 6 months. She does admit to a fall in her garden in January 2020 and feels her symptoms have been somewhat exacerbated since then but have significantly worsened over the past several days without new injury. Patient contacted her primary care provider and she was prescribed dexamethasone, Flexeril, pain. The following morning after starting some of this medication patient was noted to have mental change in confusion. She is brought to the emergency department for further evaluation. Since that time lumbar CT imaging has been performed. Patient was also found to have a urinary tract infection is currently on Rocephin. Patient is currently on Plavix. She has been receiving Norflex and Dilaudid as prescribed for some pain control. Neurology is recommending not prescribing oral narcotic medications due to her altered mental status. Patient states at the bedside stroke evaluation is her number-one priority. Consultation has been placed with pain management who has seen the patient and the patient states they are unable to proceed forward with an injection due to her current stroke evaluation status. Patient continues to seen by medicine as well as neurology. MRI of the brain along with echo Doppler has been ordered for the patient. Patient states she has back pain radiates into the left buttock, down the lateral thigh and calf to the ankle. She has difficulty of mobility on left lower extremity due to her pain. She denies any right lower extremity radiculopathy. She does have some weakness of the left foot. She denies any right lower extremity weakness. Patient's past medical history includes hyperlipidemia, hypertension, coronary artery disease. Left testing yesterday also showed evidence of a elevated d-dimer. CT angiogram of the head neck was also performed. Past Medical History Past Medical History: Coronary Artery Disease (CAD), GERD/Reflux, Hyperlipidemia, Hypertension, Pneumonia Additional Past Medical History / Comment(s): L side sciatica approximately past 6 months, "borderline diabetes", diverticular disease, constipation, past UTIs, occasional bilateral leg edema, hypothyroid. History of Any Multi-Drug Resistant Organisms: None Reported Past Surgical History: Appendectomy, Coronary Bypass/CABG, Heart Catheterization, Hysterectomy Additional Past Surgical History / Comment(s): 3 vessel CABG in 1995, colonoscopy Past Anesthesia/Blood Transfusion Reactions: No Reported Reaction Additional Past Anesthesia/Blood Transfusion Reaction / Comm: Unsure if pt received blood with CABG Past Psychological History: Anxiety Additional Psychological History / Comment(s): Pt resides alone. She has recently been using a walker. She normally drives and is independent. Smoking Status: Former smoker Past Alcohol Use History: Occasional Additional Past Alcohol Use History / Comment(s): Pt started smoking in 1965 and quit in 1995. She drinks wine occasionally, she states socially. Past Drug Use History: None Reported - Past Family History Father Family Medical History: Myocardial Infarction ([place]) Additional Family Medical History / Comment(s): Father from a [place] at the age of 56yrs. Mother Family Medical History: CVA/TIA, Respiratory Disorder Additional Family Medical History / Comment(s): Mother had TB prior to pt being born. Medications and Allergies Home Medications Medication Instructions Recorded Confirmed Type Acetaminophen-Codeine 300-30mg 1 tab PO Q8H PRN 05/05/20 05/05/20 History [Tylenol w/codeine #3] Aspirin EC [Ecotrin Low Dose] 81 mg PO BID 05/05/20 05/05/20 History Atorvastatin [Lipitor] 40 mg PO DAILY 05/05/20 05/05/20 History Baclofen [Lioresal] 10 mg PO DAILY 05/05/20 05/05/20 History Citalopram Hydrobromide [CeleXA] 20 mg PO DAILY 05/05/20 05/05/20 History Cranberry Fruit Concentrate [Azo 500 mg PO DAILY 05/05/20 05/05/20 History Cranberry] Cyclobenzaprine [Flexeril] 10 mg PO TID PRN 05/05/20 05/05/20 History Dexamethasone [Decadron] 4 mg PO BID 05/05/20 05/05/20 History Ergocalciferol [Vitamin D2] 50,000 unit PO Q14D 05/05/20 05/05/20 History Ezetimibe [Zetia] 10 mg PO DAILY 05/05/20 05/05/20 History HYDROcodone/APAP 5-325MG [[place] 1 tab PO Q6H PRN 05/05/20 05/05/20 History 5-325] Hydrocortisone [Anusol-Hc] 1 applic RECTAL BID PRN 05/05/20 05/05/20 History LORazepam [Ativan] 1 mg PO HS 05/05/20 05/05/20 History Levothyroxine Sodium [Synthroid] 50 mcg PO DAILY 05/05/20 05/05/20 History Metoprolol Tartrate [Lopressor] 50 mg PO DAILY 05/05/20 05/05/20 History Multivitamins, Thera [Multivitamin 1 tab PO DAILY 05/05/20 05/05/20 History (formulary)] Omeprazole 40 mg PO DAILY 05/05/20 05/05/20 History Triamterene-Hctz 37.5-25Mg 1 cap PO DAILY 05/05/20 05/05/20 History [Dyazide 37.5-25 Capsule] Allergies Allergy/AdvReac Type Severity Reaction Status Date / Time No Known Allergies Allergy Verified 05/05/20 11:29 Physical Examination Physical exam: Patient is awake, alert, and oriented 3 and is able to answer some questions but does have some difficulty but formulating words and has some slight confusion Vital signs stable Good chest excursion with deep inspiration and expiration Examination of lumbar spine reveals skin is intact with no abrasions, lacerations, or bruises; no erythema, purulence or signs of infection Dorsiflexion, plantarflexion, and extensor hallucis longus positive sustained on the right Lower extremity strength 5/5 bilaterally on the right Left lower extremity strength is 4/5 including dorsiflexion and extensor hallucis longus Patient is able to lift legs off the bed independently with hip flexion No lower extremity hyperreflexia bilaterally No signs or symptoms of DVT; no calf pain No pain with internal and external rotation of the hips bilaterally Neurovascularly intact Results Pertinent studies: CT of the lumbar spine taken on 05/05/2020: L2-3 and L3-4 vacuum disc changes, posterior disc bulging, facet joint arthropathy, and ligamentum flavum hypertrophy resulting in mild central canal stenosis; L4-5 grade 1 spondylolis thesis, facet joint arthropathy, posterior disc bulging, and ligamentum flavum hypertrophy resulting in severe spinal canal stenosis; L5-S1 vacuum disc posterior bulging with bilateral neural foraminal encroachment - Labs Labs: Abnormal Lab Results - Last 24 Hours (Table) 05/05/20 05/05/20 05/05/20 Range/Units 09:31 09:31 09:31 Lymphocytes # 0.9 L (1.0-4.8) k/uL D-Dimer (<0.60) mg/L FEU Chloride 108 H (98-107) mmol/L BUN 38 H (7-17) mg/dL Creatinine 1.63 H (0.52-1.04) mg/dL Glucose 172 H (74-99) mg/dL POC Glucose (mg/dL) (75-99) mg/dL Triglycerides (<150) mg/dL HDL Cholesterol (40-60) mg/dL Urine Appearance Cloudy H (Clear) Ur Leukocyte Esterase Moderate H (Negative) Urine WBC 7 H (0-5) /hpf Ur Squamous Epith Cells 6 H (0-4) /hpf Urine Bacteria Rare H (None) /hpf Hyaline Casts 8 H (0-2) /lpf Urine Mucus Rare H (None) /hpf 05/05/20 05/05/20 05/06/20 Range/Units 09:48 09:51 06:04 Lymphocytes # (1.0-4.8) k/uL D-Dimer 1.01 H (<0.60) mg/L FEU Chloride (98-107) mmol/L BUN (7-17) mg/dL Creatinine (0.52-1.04) mg/dL Glucose (74-99) mg/dL POC Glucose (mg/dL) 154 H (75-99) mg/dL Triglycerides 180 H (<150) mg/dL HDL Cholesterol 38 L (40-60) mg/dL Urine Appearance (Clear) Ur Leukocyte Esterase (Negative) Urine WBC (0-5) /hpf Ur Squamous Epith Cells (0-4) /hpf Urine Bacteria (None) /hpf Hyaline Casts (0-2) /lpf Urine Mucus (None) /hpf H & H 05/05/20 Range/Units 09:31 Hgb 12.4 (11.4-16.0) gm/dL Hct 38.7 (34.0-46.0) % Result Diagrams: 05/05/20 09:31 05/05/20 09:31 Assessment and Plan Assessment: Assessment: Acute on chronic low back pain Acute on chronic left lower extremity radiculopathy L4-5 severe spinal canal stenosis L4-5 spondylolisthesis Multilevel lumbar facet arthropathy Left lower extremity weakness Urinary tract infection Change in mental status Hyperlipidemia Hypertension History of coronary artery disease Currently on anticoagulation Currently undergoing further stroke evaluation (1) Acute exacerbation of chronic low back pain Current Visit: Yes Status: Acute Code(s): M54.5 - LOW BACK PAIN; G89.29 - OTHER CHRONIC PAIN SNOMED Code(s): 895320348 (2) Lumbar back pain with radiculopathy affecting left lower extremity Current Visit: Yes Status: Acute Code(s): M54.16 - RADICULOPATHY, LUMBAR REGION SNOMED Code(s): 681389523 (3) Left leg weakness Current Visit: Yes Status: Acute Code(s): R29.898 - OTH SYMPTOMS AND SIGNS INVOLVING THE MUSCULOSKELETAL SYSTEM SNOMED Code(s): 305096947 (4) Spondylolisthesis at L4-L5 level Current Visit: Yes Status: Acute Code(s): M43.16 - SPONDYLOLISTHESIS, LUMBAR REGION SNOMED Code(s): 042442376 (5) Spinal stenosis at L4-L5 level Current Visit: Yes Status: Acute Code(s): M48.061 - SPINAL STENOSIS, LUMBAR REGION WITHOUT NEUROGENIC ALEXIS SNOMED Code(s): 40464137 (6) Lumbar facet arthropathy Current Visit: Yes Status: Acute Code(s): M47.816 - SPONDYLOSIS W/O MYELOPATHY OR RADICULOPATHY, LUMBAR REGION SNOMED Code(s): 534578905 (7) Urinary tract infection Current Visit: Yes Status: Acute Code(s): N39.0 - URINARY TRACT INFECTION, SITE NOT SPECIFIED SNOMED Code(s): 63379586 (8) Change in mental status Current Visit: Yes Status: Acute Code(s): R41.82 - ALTERED MENTAL STATUS, UNSPECIFIED SNOMED Code(s): 761952278 (9) Hyperlipidemia Current Visit: Yes Status: Acute Code(s): E78.5 - HYPERLIPIDEMIA, UNSPECI FIED SNOMED Code(s): 43814404 (10) Hypertension Current Visit: Yes Status: Acute Code(s): I10 - ESSENTIAL (PRIMARY) HYPERTENSION SNOMED Code(s): 70106420 (11) History of coronary artery disease Current Visit: Yes Status: Acute Code(s): Z86.79 - PERSONAL HISTORY OF OTHER DISEASES OF THE CIRCULATORY SYSTEM SNOMED Code(s): 103719811 (12) Current use of long goods drier anticoagulation Current Visit: Yes Status: Acute Code(s): Z79.01 - SNF (CURRENT) USE OF ANTICOAGULANTS SNOMED Code(s): 074041445 Plan: Plan: 1. After reviewing of imaging, physical examination of the patient, and after discussion with the patient, we will currently plan to continue conservative treatment regards to her lumbar spine and left lower extremity radiculopathy. Patient does have degenerative changes at her lumbar spine most significant at L4-5 with spondylolisthesis and severe spinal canal stenosis. Patient has been seen and examined by pain medicine who states the patient could not proceed forward with an injection as she is currently undergoing further evaluation for stroke. Patient is also currently on anticoagulation with Plavix. Patient states stroke evaluation is her #1 priority. She does not wish to currently undergo further treatment or evaluation regards to her lumbar spine. She states she would like to avoid surgical intervention at her lumbar spine if she is able to do so. She will be 1 continue working with conservative treatment for her low back pain and left lower extremity radiculopathy. We discussed she is also being currently treated for urinary tract infection. She does continue to have some altered mental status but it has improved as compared to yesterday. We discussed from an orthopedic spine standpoint patient will be cleared for discharge. We'll plan to have her follow-up in outpatient setting in approximately 3-4 weeks. Patient feels this is a good plan of care. 2. Patient will continue be seen today by other medical providers including neurology and medicine for other significant medical diagnoses including altered mental status, stroke evaluation, and urinary tract infection along with chronic medical conditions including hyperlipidemia, hypertension, and history of coronary artery disease Time with Patient: Greater than 30 (Including obtaining history, physical examination, reviewing of imaging, and dictation.)
[2020-05-06] MEDS ORDERED: LORazepam 0.5 MG TAB PO STA (09:48)
[2020-05-06] MEDS: ASPIRIN 81 MG PO SCH (09:53)
[2020-05-06] MEDS: CITALOPRAM HYDROBROMIDE 20 MG TAB PO SCH (09:53)
[2020-05-06] MEDS: METOPROLOL TARTRATE 50 MG TAB PO SCH (09:53)
[2020-05-06] MEDS: BACLOFEN 10 MG TAB PO SCH ×3 (09:53→20:33)
[2020-05-06] MEDS: CLOPIDOGREL 75 MG TAB PO SCH (09:53)
[2020-05-06] MEDS: LIDOCAINE 5% PATCH TOPICAL SCH (10:22)
--- NOTE | 2020-05-06 11:16 | P.GSCN ---
History of Present Illness Consult date: 05/06/20 Reason for Consult: Carotid stenosis. History of present illness: Impression: #1: History of expressive aphasia, now resolved. #2: Bilateral carotid stenosis per CT angiogram. This is estimated be 70% on the right and 50% on the left. The right does demonstrate significant tortuosity which may falsely elevate degree of stenosis. #3: Remote history of tobacco use stopping tobacco consumption approximately 24 years ago. She did have approximately [id number] tobacco use history up until that time. #4: Coronary artery disease/coronary artery bypass grafting. #5: Hypertension. #6: Dyslipidemia. #7: Hypothyroidism. Recommendation: #1: Agree with presently inserted medical therapy including both aspirin and statin medication. #2: I've taken the liberty of ordering a carotid duplex. Further recommendations will be made following availability of carotid duplex imaging results. #3: Outpatient follow-up. Patient is a 75-year-old female who was seen today in vascular surgical consultation regarding carotid stenosis with a history of expressive aphasia. The patient was interviewed in the presence of her daughter who was able to add historical information. The patient admits to history of expressive aphasia. The daughter indicates this may began Saturday evening May 04 and persisted into at which time she presented to the emergency room. Her presentation to the emergency room was more related to a complaint of severe back pain then of neurologic deficit. There is no previous history of expressiv e aphasia. During her emergency room visit the patient did undergo computed tomography scan of her carotids. This demonstrates 70% stenosis of the ICA on the right and approximately 50% stenosis on the left. Patient is right handed. The patient indicates that she had a carotid duplex approximately 1 month ago and her private practitioner's office. She indicated no significant disease was identified at that time. Physical examination revealed the patient to be awake alert and in no apparent distress. Neurologic exam: Cranial nerves II through XII are grossly intact. There is equal motor strength in both the upper and lower extremities. No facial droop is noted. Tongue is midline. Cardiac: Heart was regular in rhythm. Lungs: Clear to auscultation bilaterally. Abdomen: Rounded although soft and otherwise benign. I did speak with the speech pathologist taking care of the patient. The speech pathologist indicates the patient's speech shows no deficit. Thank you very much for allowing me to participate in the care of your patient. I will await the results of the carotid duplex imaging and will follow the patient in the office as an outpatient. Past Medical History Past Medical History: Coronary Artery Disease (CAD), GERD/Reflux, Hyperlipidemia, Hypertension, Pneumonia Additional Past Medical History / Comment(s): L side sciatica approximately past 6 months, "borderline diabetes", diverticular disease, constipation, past UTIs, occasional bilateral leg edema, hypothyroid. History of Any Multi-Drug Resistant Organisms: None Reported Past Surgical History: Appendectomy, Coronary Bypass/CABG, Heart Catheterization, Hysterectomy Additional Past Surgical History / Comment(s): 3 vessel CABG in 1995, colonoscopy Past Anesthesia/Blood Transfusion Reactions: No Reported Reaction Additional Past Anesthesia/Blood Transfusion Reaction / Comm: Unsure if pt received blood with CABG Past Psychological History: Anxiety Additional Psychological History / Comment(s): Pt resides alone. She has recently been using a walker. She normally drives and is independent. Smoking Status: Former smoker Past Alcohol Use History: Occasional Additional Past Alcohol Use History / Comment(s): Pt started smoking in 1965 and quit in 1995. She drinks wine occasionally, she states socially. Past Drug Use History: None Reported - Past Family History Father Family Medical History: Myocardial Infarction ([place]) Additional Family Medical History / Comment(s): Father from a [place] at the age of 56yrs. Mother Family Medical History: CVA/TIA, Respiratory Disorder Additional Family Medical History / Comment(s): Mother had TB prior to pt being born. Medications and Allergies Home Medications Medication Instructions Recorded Confirmed Type Acetaminophen-Codeine 300-30mg 1 tab PO Q8H PRN 05/05/20 05/05/20 History [Tylenol w/codeine #3] Aspirin EC [Ecotrin Low Dose] 81 mg PO BID 05/05/20 05/05/20 History Atorvastatin [Lipitor] 40 mg PO DAILY 05/05/20 05/05/20 History Baclofen [Lioresal] 10 mg PO DAILY 05/05/20 05/05/20 History Citalopram Hydrobromide [CeleXA] 20 mg PO DAILY 05/05/20 05/05/20 History Cranberry Fruit Concentrate [Azo 500 mg PO DAILY 05/05/20 05/05/20 History Cranberry] Cyclobenzaprine [Flexeril] 10 mg PO TID PRN 05/05/20 05/05/20 History Dexamethasone [Decadron] 4 mg PO BID 05/05/20 05/05/20 History Ergocalciferol [Vitamin D2] 50,000 unit PO Q14D 05/05/20 05/05/20 History Ezetimibe [Zetia] 10 mg PO DAILY 05/05/20 05/05/20 History HYDROcodone/APAP 5-325MG [[place] 1 tab PO Q6H PRN 05/05/20 05/05/20 History 5-325] Hydrocortisone [Anusol-Hc] 1 applic RECTAL BID PRN 05/05/20 05/05/20 History LORazepam [Ativan] 1 mg PO HS 05/05/20 05/05/20 History Levothyroxine Sodium [Synthroid] 50 mcg PO DAILY 05/05/20 05/05/20 History Metoprolol Tartrate [Lopressor] 50 mg PO DAILY 05/05/20 05/05/20 History Multivitamins, Thera [Multivitamin 1 tab PO DAILY 05/05/20 05/05/20 History (formulary)] Omeprazole 40 mg PO DAILY 05/05/20 05/05/20 History Triamterene-Hctz 37.5-25Mg 1 cap PO DAILY 05/05/20 05/05/20 History [Dyazide 37.5-25 Capsule] Allergies Allergy/AdvReac Type Severity Reaction Status Date / Time No Known Allergies Allergy Verified 05/05/20 11:29 Surgical - Exam Osteopathic Statement: *. No significant issues noted on an osteopathic structural exam other than those noted in the History and Physical/Consult. Vital Signs Temp Pulse Resp BP Pulse Ox 98.6 F 111 H 18 186/91 100 05/05/20 09:20 05/05/20 09:20 05/05/20 09:20 05/05/20 09:20 05/05/20 09:20 Results - Labs 05/05/20 09:31 05/05/20 09:31 Abnormal Lab Results - Last 24 Hours (Table) 05/05/20 05/06/20 Range/Units 09:31 06:04 Triglycerides 180 H (<150) mg/dL HDL Cholesterol 38 L (40-60) mg/dL Urine Appearance Cloudy H (Clear) Ur Leukocyte Esterase Moderate H (Negative) Urine WBC 7 H (0-5) /hpf Ur Squamous Epith Cells 6 H (0-4) /hpf Urine Bacteria Rare H (None) /hpf Hyaline Casts 8 H (0-2) /lpf Urine Mucus Rare H (None) /hpf Diabetes panel 05/06/20 Range/Units 06:04 Triglycerides 180 H (<150) mg/dL HDL Cholesterol 38 L (40-60) mg/dL Thyroid panel 05/05/20 Range/Units 09:31 TSH 1.520 (0.465-4.680) mIU/L Pituitary panel 05/05/20 Range/Units 09:31 TSH 1.520 (0.465-4.680) mIU/L
--- NOTE | 2020-05-06 11:40 | ECHOF ---
Referral Reason:stroke MEASUREMENTS -------- HEIGHT: 165.1 cm WEIGHT: 113.4 kg BP: IVSd: 1.1 cm (0.6 - 1.1) LVIDd: 4.5 cm (3.9 - 5.3) LVPWd: 1.3 cm (0.6 - 1.1) IVSs: 1.3 cm LVIDs: 3.9 cm LVPWs: 1.3 cm Ao Diam: 3.1 cm (2.0 - 3.7) AV Cusp: 1.6 cm (1.5 - 2.6) LA Diam: 4.4 cm (2.7 - 3.8) MV EXCURSION: 22.863 mm (> 18.000) MV EF SLOPE: 134 mm/s (70 - 150) MV E [place]: 0.60 m/s MV DecT: 224 ms MV A [place]: 0.85 m/s MV E/A Ratio: 0.71 RAP: 5.00 mmHg RVSP: 13.89 mmHg FINDINGS -------- Sinus rhythm. The left ventricular size is normal. There is borderline concentric left ventricular hypertrophy. Overall left ventricular systolic function is low-normal with, an EF between 50 - 55 %. The right ventricle is normal in size. The left atrial size is normal. The right atrial size is normal. The aortic valve is trileaflet, and appears structurally normal. No aortic stenosis or regurgitation. Mild mitral regurgitation is present. Mild tricuspid regurgitation present. Right ventricular systolic pressure is normal at < 35 mmHg. There is no pulmonic regurgitation present. The aortic root size is normal. Echo free space represents a pericardial fat pad. CONCLUSIONS -------- 1. The left ventricular size is normal. 2. There is borderline concentric left ventricular hypertrophy. 3. Overall left ventricular systolic function is low-normal with, an EF between 50 - 55 %. 4. The right ventricle is normal in size. 5. The left atrial size is normal. 6. The right atrial size is normal. 7. Mild mitral regurgitation is present. 8. Mild tricuspid regurgitation present. 9. Echo free space represents a pericardial fat pad. MEDICAL TRANSPORT SPECIALIST: Tran Araiza RDCS
--- NOTE | 2020-05-06 12:52 | P.PN ---
Subjective Progress Note Date: 05/06/20 75 years old female patient of Dr. Gupta with past medical history of coronary artery disease status post three-vessel coronary artery bypass graft in 1995, GERD, hyperlipidemia, hypertension, history of diverticulitis, constipation history of UTI, hypothyroidism, borderline diabetes, comes in today with acute on chronic left-sided sciatica for the past 6 months. Patient was undergoing physical therapy as outpatient for the past few weeks. She did have a mechanical fall 4 months ago in the garden there she tripped over a stone and hit her face. She denies any back injury in the past few weeks. She did have significant pain in her left leg for the past several days. She did went to physical therapy yesterday and had manipulation of the spine. The pain got worse after the physical therapy session and patient could not drive herself home. Patient's daughter drove her home. Patient is unable to walk or put weight on her lower extremity due to the extreme pain. Dr. Gupta was called yesterday for prescribed dexamethasone, Flexeril and Endeavor for the pain. Patient slept well overnight and took first dose yesterday. Patient leg pain worsened this morning radiating to her left buttock and her left ankle. Since the pain had significantly worsened patient decided to come to the ER. She did receive morphine in the hospital with some improvement. Patient was also noted to have change in mental status including confusion. Son at bedside states that patient is usually very alert but since morning it appears patient is having a different conversation with her son and it takes a while for the patient to respond. She is noted to be incontinent and has word finding difficulty and delay in response to the questions. Brain CT was negative for any acute changes patient did have atrophic and chronic small vessel ischemic changes. Chest x- ray suggests I went very and suspected chronic changes with possible chronic bronchitis of chronic asthma and prior CABG changes. Labs were ordered the WBC of 8.7 hemoglobin 12.4 d-dimer 1.01 BUN of 38 creatinine 1.63 glucose of 172 UA was positive for leukocyte esterase and WBCs and hyaline cast. Patient initiated on Rocephin, IV fluids at 75 mL per hour. Neurology consulted because of change in mental status which appears likely secondary to the medications. Stat CT of the lumbar spine ordered to rule out herniation or fracture.. Ultrasound of the kidneys ordered as patient's acute kidney injury. Chemistry ordered and patient will be monitored in the [facility] unit. 05/06: CT of the lumbar spine taken on 05/05/2020: L2-3 and L3-4 vacuum disc changes, posterior disc bulging, facet joint arthropathy, and ligamentum flavum hypertrophy resulting in mild central canal stenosis; L4-5 grade 1 spondylolisthesis, facet joint arthropathy, posterior disc bulging, and ligamentum flavum hypertrophy resulting in severe spinal canal stenosis; L5-S1 vacuum disc posterior bulging with bilateral neural foraminal encroachment. This morning, patient was able to recall Dr. Berumen's name. She states her pain continues to be terrible but has increased range of motion today to the lower extremities. She does state the Dilaudid helps quite a bit with her pain control. Word finding is improved today from yesterday. Patient has been seen by neurology with concern for Broca aphasia likely due to stroke and started on Plavix and baby aspirin once daily. MRI of the brain is ordered for today as well as 2-D echo. CT angiogram of the head and neck revealed plaque formation of 50 and probably 70% on the right internal carotid artery. Approximately 35% stenosis in the proximal left internal carotid artery. No significant intracranial angiographic abnormality. Consult added for vascular surgery and patient has been seen by Dr. Sommer and carotid duplex ordered.. Patient has been seen by pain management the patient will need to wait for 7 days of Plavix before any interventional pain management can be performed. Patient was also seen by orthopedic spine with plan for conservative management and follow-up in the office. Echocardiogram reveals borderline concentric left hypertrophy, EF 50-55%, mild mitral regurgitation, mild tricuspid regurgitation. PT has recommended home with homecare or subacute rehab. Review of Systems Constitutional: Denies chills, Denies fever, Denies lethargy, Denies malaise, Denies poor appetite, Denies weakness, Denies weight loss Eyes: denies decreased vision, denies diplopia, denies discharge, denies pain Ears, nose, mouth and throat: Denies dental pain, Denies headache, Denies nasal discharge, Denies nose pain Cardiovascular: Denies chest pain, Denies decreased exercise tolerance, Denies edema, Denies high blood pressure, Denies irregular heart beat, Denies palpitations, Denies paroxysmal nocturnal dyspnea, Denies rapid heart beat, Denies shortness of breath Respiratory: Denies congestion, Denies cough, Denies cough with sputum, Denies dyspnea, Denies home oxygen, Denies wheezing Gastrointestinal: Denies abdominal pain, Denies change in bowel habits, Denies coffee ground emesis, Denies early satiety, Denies excessive gas, Denies heartburn, Denies hematemesis, Denies hematochezia, Denies loss of appetite, Denies nausea, Denies vomiting Genitourinary: Denies dysuria, Denies flank pain, Denies kidney stones, Denies menorrhagia, Denies urgency, Denies urinary frequency Musculoskeletal: Endorses gait dysfunction, endorses limitation of motion, Denies morning stiffness, endorses muscle cramps endorses back pain and rad iculopathy Integumentary: Denies rash, Denies wounds, Denies brittle nails, Denies change in hair/nails, Denies darkening of skin Neurological: Denies balance difficulties, reports change in speech, Denies double vision, reports gait dysfunction, Denies loss of vision, Denies numbness, Denies paralysis, Denies paresthesias, Denies seizures Psychiatric: Denies anxiety, Denies depression Endocrine: Denies excessive sweating, Denies excessive thirst, Denies high blood sugars, Denies palpitations Hematologic/Lymphatic: Denies easy bruising, Denies lymphadenopathy Physical Examination - Constitutional General appearance: cooperative, severe acute distress, family members at bedside - EENT Eyes: anicteric sclerae, PERRLA, normal appearance ENT: hearing grossly normal - Neck Neck: no lymphadenopathy, normal ROM, no other, no rigidity, no stridor, no thyromegaly - Respiratory Respiratory: bilateral: CTA, negative: diminished, dullness, rales, rhonchi - Cardiovascular Rhythm: regular Heart sounds: normal: S1, S2 Abnormal Heart Sounds: no systolic murmur, no diastolic murmur, no rub, no S3 Gallop, no S4 Gallop, no click, no other - Gastrointestinal General gastrointestinal: normal bowel sounds, soft nontender - Integumentary Integumentary: no rash - Neurologic Neurologic: CNII-XII intact - Musculoskeletal Musculoskeletal: Gait could not be assessed patient has difficulty lifting her left leg due to the extreme pain., Strength in the right lower extremity within normal limits no sensory deficit noted. Tone normal - Psychiatric Psychiatric: A&O x's 3, appropriate affect Assessment and Plan #1 acute thoracolumbar radiculopathy on the left. Dilaudid 0.5 mg iv every 3 hours for pain control, lidocaine patch ordered. Consult with Dr. Moseley and pain management appreciated. No plan for steroid injection. Continue baclofen 10 mg 3 times a day. Hold Flexeril and dexamethasone. Hold Toradol as patient has JC #2 acute toxic metabolic encephalopathy secondary to possible CVA with Broca aphasia. MRI of the brain, carotid duplex pending. Consults with neurology appreciated. Hold dexamethasone and Flexeril as it could have contributed to the change in mental status. Hold Ativan. Continue aspirin 81 mg daily, Plavix 75 mg daily, Zetia 10 mg daily, atorvastatin increased 80 mg daily. #3 acute renal failure likely secondary to dehydration and diuretics hold Dyazide continue IV fluids at 75 mL per hour status was one year. Patient's baseline creatinine not known. Continue to avoid nephrotoxic agent avoid [place] l for pain control #4 UTI Rocephin initiated at 1 g every 24 hours continue IV fluids at 75 mL/h #5 history of coronary artery disease status post CABG in 1993 continue aspirin 81 mg, continue Lipitor 40 mg by mouth daily, continue Zetia, continue metoprolol #6 recurrent depression continue Celexa 20 mg by mouth daily #7 history of hypothyroidism continue Synthyroid at 50 g by mouth daily #8 GERD continue omeprazole 40 mg by mouth daily #9 DVT prophylaxis with heparin every 12 #10 code status full code Discharge plan: To be determined, possibly home with homecare or subacute rehab. Impression and plan of care have been directed as dictated by the signing physician. Patience Bell nurse practitioner acting as scribe for signing physician. Objective - Vital Signs Vital signs: Vital Signs Temp 98.0 F 05/06/20 04:34 Pulse 92 05/06/20 04:34 Resp 18 05/06/20 04:34 BP 127/67 05/06/20 04:34 Pulse Ox 97 05/06/20 04:34 Intake & Output 05/05/20 05/06/20 05/06/20 18:59 06:59 18:59 Intake Total 75 0 Balance 75 0 Weight 108.862 kg 109.3 kg Intake: Intake, IV Titration 75 Amount Sodium Chloride 0.9% 1, 75 000 ml @ 75 mls/hr IV . [id number] STA Rx#:[id number] Oral 0 Other: Voiding Method Incontinent # Voids 0 - Labs CBC & Chem 7: 05/05/20 09:31 05/05/20 09:31 Labs: Abnormal Lab Results - Last 24 Hours (Table) 05/05/20 05/05/20 05/05/20 Range/Units 09:31 09:31 09:31 Lymphocytes # 0.9 L (1.0-4.8) k/uL D-Dimer (<0.60) mg/L FEU Chloride 108 H (98-107) mmol/L BUN 38 H (7-17) mg/dL Creatinine 1.63 H (0.52-1.04) mg/dL Glucose 172 H (74-99) mg/dL POC Glucose (mg/dL) (75-99) mg/dL Triglycerides (<150) mg/dL HDL Cholesterol (40-60) mg/dL Urine Appearance Cloudy H (Clear) Ur Leukocyte Esterase Moderate H (Negative) Urine WBC 7 H (0-5) /hpf Ur Squamous Epith Cells 6 H (0-4) /hpf Urine Bacteria Rare H (None) /hpf Hyaline Casts 8 H (0-2) /lpf Urine Mucus Rare H (None) /hpf 05/05/20 05/05/20 05/06/20 Range/Units 09:48 09:51 06:04 Lymphocytes # (1.0-4.8) k/uL D-Dimer 1.01 H (<0.60) mg/L FEU Chloride (98-107) mmol/L BUN (7-17) mg/dL Creatinine (0.52-1.04) mg/dL Glucose (74-99) mg/dL POC Glucose (mg/dL) 154 H (75-99) mg/dL Triglycerides 180 H (<150) mg/dL HDL Cholesterol 38 L (40-60) mg/dL Urine Appearance (Clear) Ur Leukocyte Esterase (Negative) Urine WBC (0-5) /hpf Ur Squamous Epith Cells (0-4) /hpf Urine Bacteria (None) /hpf Hyaline Casts (0-2) /lpf Urine Mucus (None) /hpf
--- NOTE | 2020-05-06 13:22 | P.PN ---
Subjective Progress Note Date: 05/06/20 Patient was seen at bedside and she said that she's feeling better today compared to yesterday. Patient feels her speech is back to normal. Upon speaking to the patient daughter was at bedside she feels like the patient the speech is back to normal and she's making a perfect sense and she is not the having any paraphasic errors. I spoke with the primary team and they said that they felt like her speech has improved today compared to yesterday. Objective - Vital Signs Vital signs: Vital Signs Temp 97.8 F 05/06/20 08:00 Pulse 93 05/06/20 08:00 Resp 19 05/06/20 08:00 BP 169/92 05/06/20 08:00 Pulse Ox 97 05/06/20 08:00 Intake & Output 05/05/20 05/06/20 05/06/20 18:59 06:59 18:59 Intake Total 75 0 Balance 75 0 Weight 108.862 kg 109.3 kg Intake: Intake, IV Titration 75 Amount Sodium Chloride 0.9% 1, 75 000 ml @ 75 mls/hr IV . [id number] STA Rx#:[id number] Oral 0 Other: Voiding Method Incontinent # Voids 0 - Exam GENERAL: The patient is lying in bed and is no acute distress. CHEST: The heart rate is regular rate rhythm. No murmurs to auscultation. LUNG: Clear to auscultation bilaterally no wheezing noted throughout. Not labored breathing. ABDOMEN/GI: Bowel sounds present in all 4 quadrants. No tenderness to palpation throughout. NEUROLOGICAL: Higher mental function: The patient is awake, alert, oriented to self, place and time. Patient is following simple and complex commands. No aphasia or neglect. Cranial nerves: The pupils are round, equal and reactive to light. Visual miner are full to threat throughout. Extraocular movement is intact no nystagmus is noted. Facial sensation is normal to touch throughout. The facial strength is normal throughout. Hearing is normal bilaterally to hand rub. Tongue is midline and moved [id number] without any difficulty. No dysarthria is noted. Shoulder shrug is normal bilaterally. Motor: Gait is defered. Could not assess left lower extremity fully because of buttock pain but was lifting above gravity without difficulty. Otherwise the strength is 5 over 5 throughout. Normal tone and bulk. Cerebellum: Normal finger to nose bilaterally. Sensation: Sensation is normal to touch throughout. Reflexes (right/left): 2+ of bilateral upper and right lower extremities except right ankle 1+ Plantars are mute bilaterally. - Labs CBC & Chem 7: 05/05/20 09:31 05/05/20 09:31 Labs: Abnormal Lab Results - Last 24 Hours (Table) 05/06/20 Range/Units 06:04 Triglycerides 180 H (<150) mg/dL HDL Cholesterol 38 L (40-60) mg/dL Assessment and Plan Assessment: Transient ischemic attack (transient episode of Broca aphasia) Asymtomatic Right ICA stenosis Acute kidney insufficiency Suspicious of urinary tract infection Acute on chronic sciatica pain Borderline Diabetes History of coronary artery disease status post CABG History of hypertension X-Tobacco use Plan: Stroke work-up Patient did not get TPA since the NIH of 1. Patient is on aspirin 81 mg twice a day and was changed to once daily. Added Plavix 75mg daily. Lipitor 40 mg is increased to 80mg daily for carotid stenosis. CT angiogram of the head and neck was reported as plaque formation and more than 50% probably 70% stenosis of the proximal right ICA carotid artery. Approximately 35% stenosis of the proximal left ICA. No significant intracranial angiographic abnormality. Vascular team is consulted guarding the carotid stenosis. MRI Brain: Cerebral atrophy. White matter signal changes are nonspecific and can be related to chronic small vessel ischemia or the mind disease. No evidence of acute cortical infarct. 2D Echo: Is reported as borderline concentric left ventricular hypertrophy. Ejection fraction 50-55%. Left atrial size is normal. Lipid panel: The LDL is 90, cholesterol is 164, triglyceride is 180 and HDL is 38. consulted HEAD OF SCIENCE as well as PT and OT. TSH: 1.52. B12: 746. Folate: >24. Also if she is having the change in mentation could be due to the new medication effect (opiates). If possible avoid narcotics which cause altered mental status consider lidocaine patch if needed She is currently on ceftriaxone which can cause encephalopathy. If possible avoid the cephalosporin. Plan was discussed with the patient as well as the primary team. From neurology perspective the no further workup is needed. That she can follow-up with a neurologist as an outpatient. She is currently on dual antiplatelets recommend being on dual antiplatelets for 21 days then the patient can come off of the Plavix. Unless vascular team wants her on longer duration. Luca Alcantar M.D. Neuro-hospitalist Time with Patient: Greater than 30
[2020-05-06] MEDS: EZETIMIBE 10 MG TAB PO SCH (13:42)
[2020-05-06 14:17] LABS: Hemoglobin A1C 6.1 % (4.0-6.0)
--- NOTE | 2020-05-06 14:33 | US ---
EXAMINATION TYPE: US carotid duplex BILAT DATE OF EXAM: 05/06/2020 COMPARISON: CT angiogram of the head and neck 05/05/2020 CLINICAL HISTORY: carotid stenosis. EXAM MEASUREMENTS: RIGHT: Peak Systolic Velocity (PSV) cm/sec ----- Right CCA: 50.3 ----- Right ICA: 105.0 ----- Right ECA: 122.1 ICA/CCA ratio: 2.1 RIGHT: End Diastole cm/sec ----- Right CCA: 12.7 ----- Right ICA: 20.9 ----- Right ECA: 10.7 LEFT: Peak Systolic Velocity (PSV) cm/sec ----- Left CCA: 71.2 ----- Left ICA: 95.3 ----- Left ECA: 120.5 ICA/CCA ratio: 1.3 LEFT: End Diastole cm/sec ----- Left CCA: 11.9 ----- Left ICA: 38.1 ----- Left ECA: 10.7 VERTEBRALS (direction of flow): Right Vertebral: Antegrade Left Vertebral: Antegrade Rhythm: Normal Patient has large thick neck, pulsatile, tortuous vessels. Severe technical difficulties. Her graft t here is a severe change involving the proximal right internal carotid artery Mild plaque noted. Waveform analysis does not show significant stenosis in the proximal internal martinez tid arteries. IMPRESSION: No hemodynamic significant stenosis of the proximal internal carotid arteries by Doppler criteria, an indirect measurement of carotid stenosis. Technologist reports technical difficulties with the exam. There is marked redundancy present at the proximal internal carotid artery on the rig ht. Digital subtraction angiography could be performed as indicated for better evaluation. Criteria for Assigning % of Stenosis / Diameter reduction (Estimation based on the indirect measurements of the internal carotid artery velocities (ICA PSV). 1. Normal (no stenosis)=ICA PSV < 125 cm/s: ratio < 2.0: ICA EDV<40 cm/s. 2. Less than 50% stenosis=ICA PSV < 125 cm/s: ratio < 2.0: ICA EDV<40 cm/s. 3. 50 to 69% stenosis=ICA PSV of 125 to 230 cm/s: ration 2.0 ? 4.0: ICA EDV 40-100 cm/s. 4. Greater than 70% stenosis to near occlusion= ICA PSV > 230 cm/s: ratio > 4.0: ICA EDV > 100 cm/s. 5. Near occlusion= ICA PSV velocities may be low or undetectable: variable ratio and ICA EDV. 6. Total occlusion=unable to detect flow.
[2020-05-06] MEDS: LORazepam 0.5 MG TAB PO PRN (16:00)
--- NOTE | 2020-05-06 17:47 | MR ---
EXAMINATION TYPE: MR brain wo con DATE OF EXAM: 05/06/2020 COMPARISON: None HISTORY: stroke: aphasia Multiplanar multiecho imaging of the brain was performed without contrast. There is cerebral cortical atrophy. There is no mass effect nor midline shift. There is no sign of in tracranial hemorrhage. Diffusion images show no sign of acute cortical infarct. There is patchy incre ased signal on the FLAIR images in the periventricular white matter with numerous foci that measure u p to 8 mm. Total number is approximately 15. The brainstem is intact. Cerebellum is intact. There is intact corpus callosum. Sella turcica appears intact. IMPRESSION: Cerebral atrophy. White matter signal changes are nonspecific and could relate to chronic small vesse l ischemia or demyelinating disease. No evidence of acute cortical infarct.
[2020-05-07] MEDS: ACETAMINOPHEN TAB 325 MG TAB PO PRN ×4 (00:02→23:10)
[2020-05-07] MEDS: PANTOPRAZOLE 40 MG TABLET PO SCH (06:14)
[2020-05-07] MEDS: LEVOTHYROXINE 50 MCG TAB PO SCH (06:14)
[2020-05-07 07:14] LABS: Calcium 8.8 mg/dL (8.4-10.2); Potassium 3.6 mmol/L (3.5-5.1)
[2020-05-07] MEDS: LIDOCAINE 5% PATCH TOPICAL SCH (08:19)
[2020-05-07] MEDS: ASPIRIN 81 MG PO SCH (08:20)
[2020-05-07] MEDS: CLOPIDOGREL 75 MG TAB PO SCH (08:20)
[2020-05-07] MEDS: ATORVASTATIN 80 MG TAB PO SCH (08:20)
[2020-05-07] MEDS: BACLOFEN 10 MG TAB PO SCH ×3 (08:20→20:58)
[2020-05-07] MEDS: CITALOPRAM HYDROBROMIDE 20 MG TAB PO SCH (08:20)
[2020-05-07] MEDS: EZETIMIBE 10 MG TAB PO SCH (08:20)
[2020-05-07] MEDS: METOPROLOL TARTRATE 50 MG TAB PO SCH (08:20)
--- NOTE | 2020-05-07 09:02 | P.PN ---
Subjective Progress Note Date: 05/07/20 75 years old female patient of Dr. Gupta with past medical history of coronary artery disease status post three-vessel coronary artery bypass graft in 1995, GERD, hyperlipidemia, hypertension, history of diverticulitis, constipation history of UTI, hypothyroidism, borderline diabetes, comes in today with acute on chronic left-sided sciatica for the past 6 months. Patient was undergoing physical therapy as outpatient for the past few weeks. She did have a mechanical fall 4 months ago in the garden there she tripped over a stone and hit her face. She denies any back injury in the past few weeks. She did have significant pain in her left leg for the past several days. She did went to p hysical therapy yesterday and had manipulation of the spine. The pain got worse after the physical therapy session and patient could not drive herself home. Patient's daughter drove her home. Patient is unable to walk or put weight on her lower extremity due to the extreme pain. Dr. Gupta was called yesterday for prescribed dexamethasone, Flexeril and [place] for the pain. Patient slept well overnight and took first dose yesterday. Patient leg pain worsened this morning radiating to her left buttock and her left ankle. Since the pain had significantly worsened patient decided to come to the ER. She did receive morphine in the hospital with some improvement. Patient was also noted to have change in mental status including confusion. Son at bedside states that patient is usually very alert but since morning it appears patient is having a different conversation with her son and it takes a while for the patient to respond. She is noted to be incontinent and has word finding difficulty and delay in response to the questions. Brain CT was negative for any acute changes patient did have atrophic and chronic small vessel ischemic changes. Chest x-ray suggests I went very and suspected chronic changes with possible chronic bronchitis of chronic asthma and prior CABG changes. Labs were ordered the WBC of 8.7 hemoglobin 12.4 d-dimer 1.01 BUN of 38 creatinine 1.63 glucose of 172 UA was positive for leukocyte esterase and WBCs and hyaline cast. Patient initiated on Rocephin, IV fluids at 75 mL per hour. Neurology consulted because of change in mental status which appears likely secondary to the medications. Stat CT of the lumbar spine ordered to rule out herniation or fracture.. Ultrasound of the kidneys ordered as patient's acute kidney injury. Chemistry ordered and patient will be monitored in the [facility] unit. 05/06: CT of the lumbar spine taken on 05/05/2020: L2-3 and L3-4 vacuum disc changes, posterior disc bulging, facet joint arthropathy, and ligamentum flavum hypertrophy resulting in mild central canal stenosis; L4-5 grade 1 spondylolisthesis, facet joint arthropathy, posterior disc bulging, and ligamentum flavum hypertrophy resulting in severe spinal canal stenosis; L5-S1 vacuum disc posterior bulging with bilateral neural foraminal encroachment. This morning, patient was able to recall Dr. Berumen's name. She states her pain continues to be terrible but has increased range of motion today to the lower extremities. She does state the Dilaudid helps quite a bit with her pain control. Word finding is improved today from yesterday. Patient has been seen by neurology with concern for Broca aphasia likely due to stroke and started on Plavix and baby aspirin once daily. MRI of the brain is ordered for today as well as 2-D echo. CT angiogram of the head and neck revealed plaque formation of 50 and probably 70% on the right internal carotid artery. Approximately 35% stenosis in the proximal left internal carotid artery. No significant intracranial angiographic abnormality. Consult added for vascular surgery and patient has been seen by Dr. Sommer and carotid duplex ordered.. Patient has been seen by pain management the patient will need to wait for 7 days of Plavix before any interventional pain management can be performed. Patient was also seen by orthopedic spine with plan for conservative management and follow-up in the office. Echocardiogram reveals borderline concentric left hypertrophy, EF 50-55%, mild mitral regurgitation, mild tricuspid regurgitation. PT has recommended home with homecare or subacute rehab. 05/07: Patient is found sitting up in bed complaining of lower back and left lower extremity pain and weakness. Patient is confused regarding plan of care. Patient was unsure that MRI of the brain was completed. MRI of the brain shows cerebral atrophy. White matter signal changes are nonspecific and could relate to chronic small vessel ischemia or demyelinating disease. No evidence of acute cortical infarct. Carotid Doppler shows no hemodynamic significant stenosis of the proximal internal carotid arteries by Doppler, no indirect measurement of carotic stenosis. Technologist reports technical difficult to tease with this exam. There is a marked redundancy present at the proximal internal carotid artery on the right. Digital subtraction angiography could be performed as indicated for better evaluation. Patient is still unable to ambulate. She does live alone. And concerned about taking care of herself. Discussion was had for subacute rehab and patient at this time declined. Patient is currently on Rocephin for bladder infection will be changed to an oral medication. Review of Systems Constitutional: Denies chills, Denies fever, Denies lethargy, Denies malaise, Denies poor appetite, Denies weakness, Denies weight loss Eyes: denies decreased vision, denies diplopia, denies discharge, denies pain Ears, nose, mouth and throat: Denies dental pain, Denies headache, Denies nasal discharge, Denies nose pain Cardiovascular: Denies chest pain, Denies decreased exercise tolerance, Denies edema, Denies high blood pressure, Denies irregular heart beat, Denies palpitations, Denies paroxysmal nocturnal dyspnea, Denies rapid heart beat, Denies shortness of breath Respiratory: Denies congestion, Denies cough, Denies cough with sputum, Denies dyspnea, Denies home oxygen, Denies wheezing Gastrointestinal: Denies abdominal pain, Denies change in bowel habits, Denies coffee ground emesis, Denies early satiety, Denies excessive gas, Denies heartburn, Denies hematemesis, Denies hematochezia, Denies loss of appetite, Denies nausea, Denies vomiting Genitourinary: Denies dysuria, Denies flank pain, Denies kidney stones, Denies menorrhagia, Denies urgency, Denies urinary frequency Musculoskeletal: Endorses gait dysfunction, endorses limitation of motion, Denies morning stiffness, endorses muscle cramps endorses back pain and radiculopathy Integumentary: Denies rash, Denies wounds, Denies brittle nails, Denies change in hair/nails, Denies darkening of skin Neurological: Denies balance difficulties, reports change in speech, Denies double vision, reports gait dysfunction, Denies loss of vision, Denies numbness, Denies paralysis, Denies paresthesias, Denies seizures Psychiatric: Denies anxiety, Denies depression Endocrine: Denies excessive sweating, Denies excessive thirst, Denies high blood sugars, Denies palpitations Hematologic/Lymphatic: Denies easy bruising, Denies lymphadenopathy Physical Examination - Constitutional General appearance: cooperative, severe acute distress, family members at [facility] Eyes: anicteric sclerae, PERRLA, normal appearance ENT: hearing grossly normal - Neck Neck: no lymphadenopathy, normal ROM, no other, no rigidity, no stridor, no thyromegaly - Respiratory Respiratory: bilateral: CTA, negative: diminished, dullness, rales, rhonchi - Cardiovascular Rhythm: regular Heart sounds: normal: S1, S2 Abnormal Heart Sounds: no systolic murmur, no diastolic murmur, no rub, no S3 Gallop, no S4 Gallop, no click, no other - Gastrointestinal General gastrointestinal: normal bowel sounds, soft nontender - Integumentary Integumentary: no rash - Neurologic Neurologic: CNII-XII intact - Musculoskeletal Musculoskeletal: Gait could not be assessed patient has difficulty lifting her left leg due to the extreme pain., Strength in the right lower extremity within normal limits no sensory deficit noted. Tone normal - Psychiatric Psychiatric: A&O x's 3, appropriate affect Assessment and Plan 1. acute thoracolumbar radiculopathy on the left. Dilaudid 0.5 mg iv every 3 hours for pain control, lidocaine patch ordered. Consult with Dr. Moseley and pain management appreciated. No plan for steroid injection. Continue baclofen 10 mg 3 times a day. Hold Flexeril and dexamethasone. Hold Toradol as patient has JC . Gabapentin 100 mg 3 times a day started. 2. acute toxic metabolic encephalopathy secondary to possible CVA with Broca aphasia. MRI of the brain, carotid duplex pending. Consults with neurology appreciated. Hold dexamethasone and Flexeril as it could have contributed to the change in mental status. Hold Ativan. Continue aspirin 81 mg daily, Plavix 75 mg daily, Zetia 10 mg daily, atorvastatin increased 80 mg daily. 3. acute renal failure likely secondary to dehydration and diuretics hold Dyazide continue IV fluids at 75 mL per hour status was one year. Patient's baseline creatinine not known. Continue to avoid nephrotoxic agent avoid Toradol for pain control 4. UTI DC Rocephin, start doxycycline 100 mg twice a day continue IV fluids at 75 mL/h 5. history of coronary artery disease status post CABG in 1993 continue aspirin 81 mg, continue Lipitor 40 mg by mouth daily, continue Zetia, continue meto prolol 6. recurrent depression continue Celexa 20 mg by mouth daily 7. history of hypothyroidism continue Synthyroid at 50 g by mouth daily 8. GERD continue omeprazole 40 mg by mouth daily 9. DVT prophylaxis with heparin every 12 Code Status: full code Discharge plan: To be determined, possibly home with homecare or subacute rehab. Impression and plan of care have been directed as dictated by the signing physician. Monica Kearney nurse practitioner acting as scribe for signing physician. Objective - Vital Signs Vital signs: Vital Signs Temp 98.1 F 05/07/20 04:06 Pulse 79 05/07/20 04:06 Resp 16 05/07/20 04:06 BP 145/88 05/07/20 04:06 Pulse Ox 97 05/07/20 04:06 Intake & Output 05/06/20 05/07/20 05/07/20 18:59 06:59 18:59 Intake Total 0 0 Balance 0 0 Weight 108.5 kg Intake: Oral 0 0 Other: Voiding Method Incontinent - Labs CBC & Chem 7: 05/05/20 09:31 05/07/20 05:59 Labs: Abnormal Lab Results - Last 24 Hours (Table) 05/06/20 05/07/20 Range/Units 06:04 05:59 BUN 28 H (7-17) mg/dL Creatinine 1.29 H (0.52-1.04) mg/dL Glucose 100 H (74-99) mg/dL Hemoglobin A1c 6.1 H (4.0-6.0) %
[2020-05-07] MEDS: GABAPENTIN 100 MG CAP PO SCH ×3 (11:54→20:58)
--- NOTE | 2020-05-07 14:42 | MR ---
EXAMINATION TYPE: MR lumbar spine wo con DATE OF EXAM: 05/07/2020 COMPARISON: None HISTORY: Severe back pain Multiplanar multiecho imaging of the lumbar spine was performed without contrast. Lumbar vertebra have normal alignment. There is mild narrowing of disc spaces and decreased signal in the disks from L2 to S1. There is small posterior disc bulging from L2 to S1. There is mild multilev el lumbar facet arthropathy. There is mild lateral recess stenosis at L4-5 due to facet arthropathy. The lumbar neural foramina are fairly well-maintained however. The visualized sacroiliac joints appea r intact. There is no paraspinal mass. The T2 sagittal images show indistinct lumbar nerve roots that is probably due to motion artifact.. There is no compression fracture. I see no bony destructive process. IMPRESSION: Mild multilevel spondylotic changes. No significant spinal stenosis. There is mild L4-5 lateral reces s stenosis. No fracture.
[2020-05-07] MEDS: DOXYCYCLINE 100 MG CAP PO SCH (20:57)
[2020-05-08] MEDS: LEVOTHYROXINE 50 MCG TAB PO SCH (06:31)
[2020-05-08] MEDS: PANTOPRAZOLE 40 MG TABLET PO SCH (06:31)
[2020-05-08] MEDS: ACETAMINOPHEN TAB 325 MG TAB PO PRN ×2 (06:31→19:51)
[2020-05-08] MEDS: CITALOPRAM HYDROBROMIDE 20 MG TAB PO SCH (08:09)
[2020-05-08] MEDS: ATORVASTATIN 80 MG TAB PO SCH (08:10)
[2020-05-08] MEDS: EZETIMIBE 10 MG TAB PO SCH (08:10)
[2020-05-08] MEDS: GABAPENTIN 100 MG CAP PO SCH ×3 (08:10→20:28)
[2020-05-08] MEDS: CLOPIDOGREL 75 MG TAB PO SCH (08:10)
[2020-05-08] MEDS: BACLOFEN 10 MG TAB PO SCH ×3 (08:10→20:27)
[2020-05-08] MEDS: METOPROLOL TARTRATE 50 MG TAB PO SCH (08:10)
[2020-05-08] MEDS: ASPIRIN 81 MG PO SCH (08:10)
[2020-05-08] MEDS: DOXYCYCLINE 100 MG CAP PO SCH ×2 (08:11→20:27)
[2020-05-08] MEDS: LIDOCAINE 5% PATCH TOPICAL SCH (08:16)
--- NOTE | 2020-05-08 08:46 | P.PN ---
Subjective Progress Note Date: 05/08/20 75 years old female patient of Dr. Gupta with past medical history of coronary artery disease status post three-vessel coronary artery bypass graft in 1995, GERD, hyperlipidemia, hypertension, history of diverticulitis, constipation history of UTI, hypothyroidism, borderline diabetes, comes in today with acute on chronic left-sided sciatica for the past 6 months. Patient was undergoing physical therapy as outpatient for the past few weeks. She did have a mechanical fall 4 months ago in the garden there she tripped over a stone and hit her face. She denies any back injury in the past few weeks. She did have significant pain in her left leg for the past several days. She did went to p hysical therapy yesterday and had manipulation of the spine. The pain got worse after the physical therapy session and patient could not drive herself home. Patient's daughter drove her home. Patient is unable to walk or put weight on her lower extremity due to the extreme pain. Dr. Gupta was called yesterday for prescribed dexamethasone, Flexeril and [place] for the pain. Patient slept well overnight and took first dose yesterday. Patient leg pain worsened this morning radiating to her left buttock and her left ankle. Since the pain had significantly worsened patient decided to come to the ER. She did receive morphine in the hospital with some improvement. Patient was also noted to have change in mental status including confusion. Son at bedside states that patient is usually very alert but since morning it appears patient is having a different conversation with her son and it takes a while for the patient to respond. She is noted to be incontinent and has word finding difficulty and delay in response to the questions. Brain CT was negative for any acute changes patient did have atrophic and chronic small vessel ischemic changes. Chest x-ray suggests I went very and suspected chronic changes with possible chronic bronchitis of chronic asthma and prior CABG changes. Labs were ordered the WBC of 8.7 hemoglobin 12.4 d-dimer 1.01 BUN of 38 creatinine 1.63 glucose of 172 UA was positive for leukocyte esterase and WBCs and hyaline cast. Patient initiated on Rocephin, IV fluids at 75 mL per hour. Neurology consulted because of change in mental status which appears likely secondary to the medications. Stat CT of the lumbar spine ordered to rule out herniation or fracture.. Ultrasound of the kidneys ordered as patient's acute kidney injury. Chemistry ordered and patient will be monitored in the MedSur unit. 05/06: CT of the lumbar spine taken on 05/05/2020: L2-3 and L3-4 vacuum disc changes, posterior disc bulging, facet joint arthropathy, and ligamentum flavum hypertrophy resulting in mild central canal stenosis; L4-5 grade 1 spondylolisthesis, facet joint arthropathy, posterior disc bulging, and ligamentum flavum hypertrophy resulting in severe spinal canal stenosis; L5-S1 vacuum disc posterior bulging with bilateral neural foraminal encroachment. This morning, patient was able to recall Dr. Berumen's name. She states her pain continues to be terrible but has increased range of motion today to the lower extremities. She does state the Dilaudid helps quite a bit with her pain control. Word finding is improved today from yesterday. Patient has been seen by neurology with concern for Broca aphasia likely due to stroke and started on Plavix and baby aspirin once daily. MRI of the brain is ordered for today as well as 2-D echo. CT angiogram of the head and neck revealed plaque formation of 50 and probably 70% on the right internal carotid artery. Approximately 35% stenosis in the proximal left internal carotid artery. No significant intracranial angiographic abnormality. Consult added for vascular surgery and patient has been seen by Dr. Sommer and carotid duplex ordered.. Patient has been seen by pain management the patient will need to wait for 7 days of Plavix before any interventional pain management can be performed. Patient was also seen by orthopedic spine with plan for conservative management and follow-up in the office. Echocardiogram reveals borderline concentric left hypertrophy, EF 50-55%, mild mitral regurgitation, mild tricuspid regurgitation. PT has recommended home with homecare or subacute rehab. 05/07: Patient is found sitting up in bed complaining of lower back and left lower extremity pain and weakness. Patient is confused regarding plan of care. Patient was unsure that MRI of the brain was completed. MRI of the brain shows cerebral atrophy. White matter signal changes are nonspecific and could relate to chronic small vessel ischemia or demyelinating disease. No evidence of acute cortical infarct. Carotid Doppler shows no hemodynamic significant stenosis of the proximal internal carotid arteries by Doppler, no indirect measurement of carotic stenosis. Technologist reports technical difficult to tease with this exam. There is a marked redundancy present at the proximal internal carotid artery on the right. Digital subtraction angiography could be performed as indicated for better evaluation. Patient is still unable to ambulate. She does live alone. And concerned about taking care of herself. Discussion was had for subacute rehab and patient at this time declined. Patient is currently on Rocephin for bladder infection will be changed to an oral medication. 05/08: MRI of the lumbar spine showed osteoarthritis. No abscess noted. Patient states that she continues to have pain to the lower spine and down the left lower extremity. Patient was able to get up to the bathroom utilizing a walker however she is not able to ambulate down the franco or in the room. Patient continues to have significant amount of pain which she states Tylenol is not helping. Patient continues to refuse any subacute rehab at this time. Patient requests to be seen by Dr. Vargas before any determinations will be made. Patient was encouraged to continue to ambulate. Review of Systems Constitutional: Denies chills, Denies fever, Denies lethargy, Denies malaise, Denies poor appetite, Denies weakness, Denies weight loss Eyes: denies decreased vision, denies diplopia, denies discharge, denies pain Ears, nose, mouth and throat: Denies dental pain, Denies headache, Denies nasal discharge, Denies nose pain Cardiovascular: Denies chest pain, Denies decreased exercise tolerance, Denies edema, Denies high blood pressure, Denies irregular heart beat, Denies palpitations, Denies paroxysmal nocturnal dyspnea, Denies rapid heart beat, Denies shortness of breath Respiratory: Denies congestion, Denies cough, Denies cough with sputum, Denies dyspnea, Denies home oxygen, Denies wheezing Gastrointestinal: Denies abdominal pain, Denies change in bowel habits, Denies coffee ground emesis, Denies early satiety, Denies excessive gas, Denies heart burn, Denies hematemesis, Denies hematochezia, Denies loss of appetite, Denies nausea, Denies vomiting Genitourinary: Denies dysuria, Denies flank pain, Denies kidney stones, Denies menorrhagia, Denies urgency, Denies urinary frequency Musculoskeletal: Endorses gait dysfunction, endorses limitation of motion, Denies morning stiffness, endorses muscle cramps endorses back pain and radiculopathy Integumentary: Denies rash, Denies wounds, Denies brittle nails, Denies change in hair/nails, Denies darkening of skin Neurological: Denies balance difficulties, reports change in speech, Denies double vision, reports gait dysfunction, Denies loss of vision, Denies numbness, Denies paralysis, Denies paresthesias, Denies seizures Psychiatric: Denies anxiety, Denies depression Endocrine: Denies excessive sweating, Denies excessive thirst, Denies high blood sugars, Denies palpitations Hematologic/Lymphatic: Denies easy bruising, Denies lymphadenopathy Physical Examination - Constitutional General appearance: cooperative, severe acute distress, family members at bedside - EENT Eyes: anicteric sclerae, PERRLA, normal appearance ENT: hearing grossly normal - Neck Neck: no lymphadenopathy, normal ROM, no other, no rigidity, no stridor, no thyromegaly - Respiratory Respiratory: bilateral: CTA, negative: diminished, dullness, rales, rhonchi - Cardiovascular Rhythm: regular Heart sounds: normal: S1, S2 Abnormal Heart Sounds: no systolic murmur, no diastolic murmur, no rub, no S3 Gallop, no S4 Gallop, no click, no other - Gastrointestinal General gastrointestinal: normal bowel sounds, soft nontender - Integumentary Integumentary: no rash - Neurologic Neurologic: CNII-XII intact - Musculoskeletal Musculoskeletal: Gait could not be assessed patient has difficulty lifting her left leg due to the extreme pain., Strength in the right lower extremity within normal limits no sensory deficit noted. Tone normal - Psychiatric Psychiatric: A&O x's 3, appropriate affect Assessment and Plan 1. acute thoracolumbar radiculopathy on the left. lidocaine patch ordered. Consult with Dr. Moseley and pain management appreciated. No plan for steroid injection. Continue baclofen 10 mg 3 times a day. Gabapentin 100 mg 3 times a day started. Prednisone 50 mg daily 3 days given as a steroid burst. [place] 5 every 4 hours given for pain management. 2. acute toxic metabolic encephalopathy secondary to possible CVA with Broca aphasia. MRI of the brain, carotid duplex pending. Consults with neurology appreciated. Hold dexamethasone and Flexeril as it could have contributed to the change in mental status. Hold Ativan. Continue aspirin 81 mg daily, Plavix 75 mg daily, Zetia 10 mg daily, atorvastatin increased 80 mg daily. 3. acute renal failure likely secondary to dehydration and diuretics hold Dyazide continue IV fluids at 75 mL per hour status was one year. Patient's baseline creatinine not known. Continue to avoid nephrotoxic agent avoid Toradol for pain control 4. UTI DC Rocephin, start doxycycline 100 mg twice a day continue IV fluids at 75 mL/h 5. history of coronary artery disease status post CABG in 1993 continue aspirin 81 mg, continue Lipitor 40 mg by mouth daily, continue Zetia, continue metoprolol 6. recurrent depression continue Celexa 20 mg by mouth daily 7. history of hypothyroidism continue Synthyroid at 50 g by mouth daily 8. GERD continue omeprazole 40 mg by mouth daily 9. DVT prophylaxis with heparin every 12 Code Status: full code Discharge plan: To be determined, possibly home with homecare or subacute rehab. Impression and plan of care have been directed as dictated by the signing phys jessean. Monica Kearney nurse practitioner acting as scribe for signing physician. Objective - Vital Signs Vital signs: Vital Signs Temp 98.3 F 05/08/20 08:00 Pulse 80 05/08/20 08:00 Resp 16 05/08/20 08:00 BP 168/95 05/08/20 08:00 Pulse Ox 97 05/08/20 08:00 Intake & Output 05/07/20 05/08/20 05/08/20 18:59 06:59 18:59 Intake Total 444 Output Total 1000 125 Balance -556 -125 Weight 110.4 kg Intake: Oral 444 Output: Urine 1000 125 Other: Voiding Method Toilet Toilet Incontinent Incontinent # Voids 2 1 - Labs CBC & Chem 7: 05/05/20 09:31 05/07/20 05:59
[2020-05-08] MEDS: HYDROcodone/APAP 5-325MG 1 EACH TAB PO PRN ×2 (10:22→22:53)
[2020-05-08] MEDS: predniSONE 50 MG TAB PO SCH (10:53)
--- NOTE | 2020-05-08 15:49 | P.PN ---
Subjective Progress Note Date: 05/08/20 Patient seen and examined. Overall feeling better. Still some weakness but significantly improved. The ultrasound was reviewed revealing tortuous right internal carotid arteries and a peak silk velocity of 105 with a ratio 2.1 on the left, the peak systolic velocity is 95 with a ratio of 1.3. No acute distress. Resting comfortably. Heart regular. Lungs are clear bilaterally. Sitting up in chair comfortably. No significant motor sensory deficits at this time. Cranial nerves II-12 grossly intact #1 bilateral carotid artery stenosis, right greater than left. Remains asymptomatic No current significant evidence for CVA. Continue medical therapy. Aspirin and statin as well as Plavix has been ordered. Follow-up in my office as outpatient for surveillance of the carotid arteries. Objective - Vital Signs Vital signs: Vital Signs Temp 98.6 F 05/08/20 13:00 Pulse 68 05/08/20 13:00 Resp 18 05/08/20 13:00 BP 146/84 05/08/20 13:00 Pulse Ox 95 05/08/20 13:00 Intake & Output 05/07/20 05/08/20 05/08/20 18:59 06:59 18:59 Intake Total 444 230 Output Total 1000 125 Balance -556 -125 230 Weight 110.4 kg Intake: Oral 444 230 Output: Urine 1000 125 Other: Voiding Method Toilet Toilet Toilet Incontinent Incontinent Incontinent # Voids 2 1 - Labs CBC & Chem 7: 05/05/20 09:31 05/07/20 05:59
[2020-05-08 20:12] LABS: Glucose,Whole Blood 260 mg/dL (75-99)
[2020-05-08] MEDS: MELATONIN 3 MG TABLET PO SCH (20:29)
[2020-05-09] MEDS: LEVOTHYROXINE 50 MCG TAB PO SCH (06:08)
[2020-05-09] MEDS: PANTOPRAZOLE 40 MG TABLET PO SCH (06:08)
[2020-05-09 06:09] LABS: Glucose,Whole Blood 116 mg/dL (75-99)
[2020-05-09] MEDS: ACETAMINOPHEN TAB 325 MG TAB PO PRN ×3 (06:09→21:09)
[2020-05-09 06:52] LABS: Basophils % (A) 0 %; Eosinophils # (A) 0.1 k/uL (0-0.7); Eosinophils % (A) 1 %; HCT 35.9 % (34.0-46.0); HGB 11.3 gm/dL (11.4-16.0); Lymphocytes # (A) 1.9 k/uL (1.0-4.8); Lymphocytes % (A) 21 %; MCH 30.3 pg (25.0-35.0); MCHC 31.6 g/dL (31.0-37.0); Mean Platelet Volume 7.6; Monocytes # (A) 0.4 k/uL (0-1.0); Monocytes % (A) 5 %; Neutrophils # (A) 6.4 k/uL (1.3-7.7); Neutrophils % (A) 71 %; Platelet Count 195 k/uL (150-450); RBC 3.74 m/uL (3.80-5.40); RDW 13.7 % (11.5-15.5)
[2020-05-09 07:14] LABS: Albumin 3.5 g/dL (3.5-5.0); Calcium 9.1 mg/dL (8.4-10.2); Magnesium 1.5 mg/dL (1.6-2.3); Potassium 3.8 mmol/L (3.5-5.1); Total Bilirubin 0.8 mg/dL (0.2-1.3); Total Protein 6.1 g/dL (6.3-8.2)
[2020-05-09] MEDS: DOXYCYCLINE 100 MG CAP PO SCH ×2 (09:03→21:10)
[2020-05-09] MEDS: BACLOFEN 10 MG TAB PO SCH ×3 (09:03→21:08)
[2020-05-09] MEDS: EZETIMIBE 10 MG TAB PO SCH (09:03)
[2020-05-09] MEDS: CLOPIDOGREL 75 MG TAB PO SCH (09:03)
[2020-05-09] MEDS: predniSONE 50 MG TAB PO SCH ×2 (09:03→13:08)
[2020-05-09] MEDS: ATORVASTATIN 80 MG TAB PO SCH (09:03)
[2020-05-09] MEDS: ASPIRIN 81 MG PO SCH (09:03)
[2020-05-09] MEDS: METOPROLOL TARTRATE 50 MG TAB PO SCH (09:03)
[2020-05-09] MEDS: GABAPENTIN 100 MG CAP PO SCH ×3 (09:04→21:08)
[2020-05-09] MEDS: LIDOCAINE 5% PATCH TOPICAL SCH (09:04)
[2020-05-09] MEDS: CITALOPRAM HYDROBROMIDE 20 MG TAB PO SCH (09:04)
[2020-05-09] MEDS ORDERED: DOCUSATE 100 MG CAP PO SCH (11:15)
--- NOTE | 2020-05-09 12:29 | P.PN ---
Subjective Progress Note Date: 05/09/20 75 years old female patient of Dr. Gupta with past medical history of coronary artery disease status post three-vessel coronary artery bypass graft in 1995, GERD, hyperlipidemia, hypertension, history of diverticulitis, constipation history of UTI, hypothyroidism, borderline diabetes, comes in today with acute on chronic left-sided sciatica for the past 6 months. Patient was undergoing physical therapy as outpatient for the past few weeks. She did have a mechanical fall 4 months ago in the garden there she tripped over a stone and hit her face. She denies any back injury in the past few weeks. She did have significant pain in her left leg for the past several days. She did went to p hysical therapy yesterday and had manipulation of the spine. The pain got worse after the physical therapy session and patient could not drive herself home. Patient's daughter drove her home. Patient is unable to walk or put weight on her lower extremity due to the extreme pain. Dr. Gupta was called yesterday for prescribed dexamethasone, Flexeril and [place] for the pain. Patient slept well overnight and took first dose yesterday. Patient leg pain worsened this morning radiating to her left buttock and her left ankle. Since the pain had significantly worsened patient decided to come to the ER. She did receive morphine in the hospital with some improvement. Patient was also noted to have change in mental status including confusion. Son at bedside states that patient is usually very alert but since morning it appears patient is having a different conversation with her son and it takes a while for the patient to respond. She is noted to be incontinent and has word finding difficulty and delay in response to the questions. Brain CT was negative for any acute changes patient did have atrophic and chronic small vessel ischemic changes. Chest x-ray suggests I went very and suspected chronic changes with possible chronic bronchitis of chronic asthma and prior CABG changes. Labs were ordered the WBC of 8.7 hemoglobin 12.4 d-dimer 1.01 BUN of 38 creatinine 1.63 glucose of 172 UA was positive for leukocyte esterase and WBCs and hyaline cast. Patient initiated on Rocephin, IV fluids at 75 mL per hour. Neurology consulted because of change in mental status which appears likely secondary to the medications. Stat CT of the lumbar spine ordered to rule out herniation or fracture.. Ultrasound of the kidneys ordered as patient's acute kidney injury. Chemistry ordered and patient will be monitored in the [facility] unit. 05/06: CT of the lumbar spine taken on 05/05/2020: L2-3 and L3-4 vacuum disc changes, posterior disc bulging, facet joint arthropathy, and ligamentum flavum hypertrophy resulting in mild central canal stenosis; L4-5 grade 1 spondylolisthesis, facet joint arthropathy, posterior disc bulging, and ligamentum flavum hypertrophy resulting in severe spinal canal stenosis; L5-S1 vacuum disc posterior bulging with bilateral neural foraminal encroachment. This morning, patient was able to recall Dr. Berumen's name. She states her pain continues to be terrible but has increased range of motion today to the lower extremities. She does state the Dilaudid helps quite a bit with her pain control. Word finding is improved today from yesterday. Patient has been seen by neurology with concern for Broca aphasia likely due to stroke and started on Plavix and baby aspirin once daily. MRI of the brain is ordered for today as well as 2-D echo. CT angiogram of the head and neck revealed plaque formation of 50 and probably 70% on the right internal carotid artery. Approximately 35% stenosis in the proximal left internal carotid artery. No significant intracranial angiographic abnormality. Consult added for vascular surgery and patient has been seen by Dr. Sommer and carotid duplex ordered.. Patient has been seen by pain management the patient will need to wait for 7 days of Plavix before any interventional pain management can be performed. Patient was also seen by orthopedic spine with plan for conservative management and follow-up in the office. Echocardiogram reveals borderline concentric left hypertrophy, EF 50-55%, mild mitral regurgitation, mild tricuspid regurgitation. PT has recommended home with homecare or subacute rehab. 05/07: Patient is found sitting up in bed complaining of lower back and left lower extremity pain and weakness. Patient is confused regarding plan of care. Patient was unsure that MRI of the brain was completed. MRI of the brain shows cerebral atrophy. White matter signal changes are nonspecific and could relate to chronic small vessel ischemia or demyelinating disease. No evidence of acute cortical infarct. Carotid Doppler shows no hemodynamic significant stenosis of the proximal internal carotid arteries by Doppler, no indirect measurement of carotic stenosis. Technologist reports technical difficult to tease with this exam. There is a marked redundancy present at the proximal internal carotid artery on the right. Digital subtraction angiography could be performed as indicated for better evaluation. Patient is still unable to ambulate. She does live alone. And concerned about taking care of herself. Discussion was had for subacute rehab and patient at this time declined. Patient is currently on Rocephin for bladder infection will be changed to an oral medication. 05/08: MRI of the lumbar spine showed osteoarthritis. No abscess noted. Patient states that she continues to have pain to the lower spine and down the left lower extremity. Patient was able to get up to the bathroom utilizing a walker however she is not able to ambulate down the franco or in the room. Patient continues to have significant amount of pain which she states Tylenol is not helping. Patient continues to refuse any subacute rehab at this time. Patient requests to be seen by Dr. Gupta before any determinations will be made. Patient was encouraged to continue to ambulate. 05/09: Patient is found sitting up in chair. Patient states that she was able to ambulate yesterday 60 feet and today 95 feet. Patient did have some pain with ambulation however it is improving. Patient denies any Confusion after given the steroids yesterday. She did take a Bourbonnais last night and had nightmares. Patient is requesting not to take it anymore in the evening. Patient is still agreeable to go to subacute rehab tomorrow. Review of Systems Constitutional: Denies chills, Denies fever, Denies lethargy, Denies malaise, Denies poor appetite, Denies weakness, Denies weight loss Eyes: denies decreased vision, denies diplopia, denies discharge, denies pain Ears, nose, mouth and throat: Denies dental pain, Denies headache, Denies nasal discharge, Denies nose pain Cardiovascular: Denies chest pain, Denies decreased exercise tolerance, Denies edema, Denies high blood pressure, Denies irregular heart beat, Denies palpitations, Denies paroxysmal nocturnal dyspnea, Denies rapid heart beat, Denies shortness of breath Respiratory: Denies congestion, Denies cough, Denies cough with sputum, Denies dyspnea, Denies home oxygen, Denies wheezing Gastrointestinal: Denies abdominal pain, Denies change in bowel habits, Denies coffee ground emesis, Denies early satiety, Denies excessive gas, Denies heartburn, Denies hematemesis, Denies hematochezia, Denies loss of appetite, Denies nausea, Denies vomiting Genitourinary: Denies dysuria, Denies flank pain, Denies kidney stones, Denies menorrhagia, Denies urgency, Denies urinary frequency Musculoskeletal: Endorses gait dysfunction, endorses limitation of motion, Denies morning stiffness, endorses muscle cramps endorses back pain and radiculopathy Integumentary: Denies rash, Denies wounds, Denies brittle nails, Denies change in hair/nails, Denies darkening of skin Neurological: Denies balance difficulties, reports change in speech, Denies double vision, reports gait dysfunction, Denies loss of vision, Denies numbness, Denies paralysis, Denies paresthesias, Denies seizures Psychiatric: Denies anxiety, Denies depression Endocrine: Denies excessive sweating, Denies excessive thirst, Denies high blood sugars, Denies palpitations Hematologic/Lymphatic: Denies easy bruising, Denies lymphadenopathy Physical Examination General Appearance: Alert, cooperative, no distress, appears stated age. Neck HEENT: Supple, no lymphadenopathy, no thyroid enlargement, no carotid bruits. Lungs: Clear to auscultation without crackles or wheezes no rhonchi, no deformity. Chest Wall: Chest wall normal expansion with deep inspiration no tenderness and no deformity was found on exam, no costochondral pain or discomfort. Heart: Regular rate and rhythm, S1, S2 normal, no murmur, rub or gallop. Back: Symmetric, no curvature, ROM normal, no CVA tenderness. Abdomen: Soft, non-tender, no rebound or rigidity, no hepatosplenomegaly. Extremities: Extremities normal, atraumatic, no cyanosis or edema. Pulses: 2+ and symmetric. Skin: Skin color, texture, tugor normal, no rashes or lesions. Neurologic: Alert oriented x3 cranial nerves II through XII intact, no motor deficit, + abnormal balance or gait Assessment and Plan 1. acute thoracolumbar radiculopathy on the left. lidocaine patch ordered. Consult with Dr. Moseley and pain management appreciated. No plan for steroid injection. Continue baclofen 10 mg 3 times a day. Gabapentin 100 mg 3 times a day started. Prednisone 50 mg daily 3 days given as a steroid burst. [place] 5 every 4 hours given for pain management. 2. acute toxic metabolic encephalopathy secondary to possible CVA with Broca aphasia. MRI of the brain, carotid duplex pending. Consults with neurology appreciated. Hold dexamethasone and Flexeril as it could have contributed to the change in mental status. Hold Ativan. Continue aspirin 81 mg daily, Plavix 75 mg daily, Zetia 10 mg daily, atorvastatin increased 80 mg daily. 3. acute renal failure likely secondary to dehydration and diuretics hold Dyazide continue IV fluids at 75 mL per hour status was one year. Patient's baseline creatinine not known. Continue to avoid nephrotoxic agent avoid Toradol for pain control 4. UTI DC Rocephin, start doxycycline 100 mg twice a day continue IV fluids at 75 mL/h 5. history of coronary artery disease status post CABG in 1993 continue aspirin 81 mg, continue Lipitor 40 mg by mouth daily, continue Zetia, continue metoprolol 6. recurrent depression continue Celexa 20 mg by mouth daily 7. history of hypothyroidism continue Synthyroid at 50 g by mouth daily 8. GERD continue omeprazole 40 mg by mouth daily 9. DVT prophylaxis with heparin every 12 Code Status: full code Discharge plan: Subacute rehab Impression and plan of care have been directed as dictated by the signing physician. Monica Kearney nurse practitioner acting as scribe for signing physician. Objective - Vital Signs Vital signs: Vital Signs Temp 97.9 F 05/09/20 08:50 Pulse 55 L 05/09/20 11:25 Resp 18 05/09/20 11:25 BP 163/80 05/09/20 11:25 Pulse Ox 96 05/09/20 11:25 Intake & Output 05/08/20 05/09/20 05/09/20 18:59 06:59 18:59 Intake Total 674 240 Output Total 1350 Balance -676 240 Weight 107.1 kg Intake: Oral 674 240 Output: Urine 1350 Other: Voiding Method Toilet Toilet Toilet Incontinent # Voids 1 2 # Bowel Movements 1 - Labs CBC & Chem 7: 05/09/20 05:43 05/09/20 05:43 Labs: Abnormal Lab Results - Last 24 Hours (Table) 05/08/20 05/09/20 05/09/20 Range/Units 20:11 05:43 05:43 RBC 3.74 L (3.80-5.40) m/uL Hgb 11.3 L (11.4-16.0) gm/dL BUN 31 H (7-17) mg/dL Creatinine 1.10 H (0.52-1.04) mg/dL Glucose 112 H (74-99) mg/dL POC Glucose (mg/dL) 260 H (75-99) mg/dL Magnesium 1.5 L (1.6-2.3) mg/dL Total Protein 6.1 L (6.3-8.2) g/dL 05/09/20 Range/Units 06:00 RBC (3.80-5.40) m/uL Hgb (11.4-16.0) gm/dL BUN (7-17) mg/dL Creatinine (0.52-1.04) mg/dL Glucose (74-99) mg/dL POC Glucose (mg/dL) 116 H (75-99) mg/dL Magnesium (1.6-2.3) mg/dL Total Protein (6.3-8.2) g/dL
--- NOTE | 2020-05-09 12:59 | P.PN ---
Subjective Progress Note Date: 05/09/20 Patient was seen at bedside and she said that she's doing much better today compared to her initial presentation. She is not having any further word finding difficulties or stumbling on words. She said that she continues to have this lower buttocks pain that radiates down but son tends as initial presentation the pain can be as high as 8. Denies any numbness so she with this. Denies any bowel or urinary problems. Objective - Vital Signs Vital signs: Vital Signs Temp 97.9 F 05/09/20 08:50 Pulse 55 L 05/09/20 11:25 Resp 18 05/09/20 11:25 BP 163/80 05/09/20 11:25 Pulse Ox 96 05/09/20 11:25 Intake & Output 05/08/20 05/09/20 05/09/20 18:59 06:59 18:59 Intake Total 674 740 Output Total 1350 Balance -676 740 Weight 107.1 kg Intake: Oral 674 740 Output: Urine 1350 Other: Voiding Method Toilet Toilet Toilet Incontinent # Voids 1 2 1 # Bowel Movements 1 - Exam GENERAL: The patient is lying in bed and is no acute distress. CHEST: The heart rate is regular rate rhythm. No murmurs to auscultation. LUNG: Clear to auscultation bilaterally no wheezing noted throughout. Not labored breathing. ABDOMEN/GI: Bowel sounds present in all 4 quadrants. No tenderness to palpation throughout. NEUROLOGICAL: Higher mental function: The patient is awake, alert, oriented to self, place and time. Patient is following simple and complex commands. No aphasia or neglect. Cranial nerves: The pupils are round, equal and reactive to light. Visual miner are full to threat throughout. Extraocular movement is intact no nystagmus is noted. Facial sensation is normal to touch throughout. The facial strength is normal throughout. Hearing is normal bilaterally to hand rub. Tongue is midline and moved [id number] without any difficulty. No dysarthria is noted. Shoulder shrug is normal bilaterally. Motor: Gait is defered. Could not assess left lower extremity fully because of buttock pain but was lifting above gravity without difficulty. Otherwise the strength is 5 over 5 throughout. Normal tone and bulk. Cerebellum: Normal finger to nose bilaterally. Sensation: Sensation is normal to touch throughout. Reflexes (right/left): 2+ of bilateral upper and right lower extremities except right ankle 1+ Plantars are mute bilaterally. - Labs CBC & Chem 7: 05/09/20 05:43 05/09/20 05:43 Labs: Abnormal Lab Results - Last 24 Hours (Table) 05/08/20 05/09/20 05/09/20 Range/Units 20:11 05:43 05:43 RBC 3.74 L (3.80-5.40) m/uL Hgb 11.3 L (11.4-16.0) gm/dL BUN 31 H (7-17) mg/dL Creatinine 1.10 H (0.52-1.04) mg/dL Glucose 112 H (74-99) mg/dL POC Glucose (mg/dL) 260 H (75-99) mg/dL Magnesium 1.5 L (1.6-2.3) mg/dL Total Protein 6.1 L (6.3-8.2) g/dL 05/09/20 Range/Units 06:00 RBC (3.80-5.40) m/uL Hgb (11.4-16.0) gm/dL BUN (7-17) mg/dL Creatinine (0.52-1.04) mg/dL Glucose (74-99) mg/dL POC Glucose (mg/dL) 116 H (75-99) mg/dL Magnesium (1.6-2.3) mg/dL Total Protein (6.3-8.2) g/dL Assessment and Plan Assessment: Transient ischemic attack (transient episode of Broca aphasia) Asymtomatic Right ICA stenosis Acute on chronic sciatica pain Acute kidney insufficiency--improving Suspicious of urinary tract infection Borderline Diabetes History of coronary artery disease status post CABG History of hypertension X-Tobacco use Plan: Stroke work-up Patient did not get TPA since the NIH of 1. Patient is on aspirin 81 mg twice a day and was changed to once daily. Added Plavix 75mg daily. Lipitor 40 mg is increased to 80mg daily for carotid stenosis. CT angiogram of the head and neck was reported as plaque formation and more than 50% probably 70% stenosis of the proximal right ICA carotid artery. Approximately 35% stenosis of the proximal left ICA. No significant intracranial angiographic abnormality. Carotid duplex on 05/06/2020 was performed and was reported as no hemodynamically significant stenosis of the proximal internal carotid artery. There is some technical difficulties within the exam. There is marketed redu ndancy present at the proximal internal carotid artery on the right. Digital subtraction angiography could be performed as indicated for better evaluation. Vascular team is consulted guarding the carotid stenosis. MRI Brain: Cerebral atrophy. White matter signal changes are nonspecific and can be related to chronic small vessel ischemia or the mind disease. No evidence of acute cortical infarct. 2D Echo: Is reported as borderline concentric left ventricular hypertrophy. Ejection fraction 50-55%. Left atrial size is normal. Lipid panel: The LDL is 90, cholesterol is 164, triglyceride is 180 and HDL is 38. 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 TSH: 1.52. B12: 746. Folate: >24. Also if she is having the change in mentation could be due to the new medication effect (opiates). If possible avoid narcotics which cause altered mental status consider lidocaine patch if needed MRI of lumbar spine without contrast on 05/07/2020 was reported as mild multilevel spondylitic changes. No significant spinal stenosis at. There is mild L4-L5 lateral recess stenosis. No fracture. From neurology perspective the no further workup is needed. She can follow-up with a neurologist as an outpatient. She is currently on dual antiplatelets recommend being on dual antiplatelets for 21 days then the patient can come off of the Plavix. Unless vascular team wants her on longer duration. Luca Alcantar M.D. Neuro-hospitalist Time with Patient: Greater than 30
[2020-05-09] MEDS ORDERED: Magnesium Replacement Protocol 1 EACH MISC MISCELLANE PRN (13:05)
[2020-05-09] MEDS: DOCUSATE 100 MG CAP PO SCH (13:08)
[2020-05-09] MEDS: MAGNESIUM SULFATE-D5W PMX 1 GM in DEXTROSE/WATER 1 100ML.BAG IVPB SCH ×2 (13:27→14:28)
[2020-05-09] MEDS: MELATONIN 3 MG TABLET PO SCH (21:08)
[2020-05-09] MEDS: LORazepam 0.5 MG TAB PO PRN (23:10)
[2020-05-10] MEDS: ACETAMINOPHEN TAB 325 MG TAB PO PRN ×2 (05:40→13:49)
[2020-05-10] MEDS: PANTOPRAZOLE 40 MG TABLET PO SCH (06:35)
[2020-05-10] MEDS: LEVOTHYROXINE 50 MCG TAB PO SCH (06:35)
[2020-05-10] MEDS ORDERED: DOCUSATE 100 MG CAP PO SCH (09:00)
[2020-05-10] MEDS ORDERED: Acetaminophen-Codeine 300-30mg TAB PO PRN (09:12)
[2020-05-10] MEDS: CITALOPRAM HYDROBROMIDE 20 MG TAB PO SCH (09:18)
[2020-05-10] MEDS: BACLOFEN 10 MG TAB PO SCH (09:18)
[2020-05-10] MEDS: ATORVASTATIN 80 MG TAB PO SCH (09:18)
[2020-05-10] MEDS: ASPIRIN 81 MG PO SCH (09:18)
[2020-05-10] MEDS: CLOPIDOGREL 75 MG TAB PO SCH (09:18)
[2020-05-10] MEDS ORDERED: NA PHOS,M-B/NA PHOS,DI-BA 133 ML ENEMA RECTAL ONE (09:18)
[2020-05-10] MEDS: METOPROLOL TARTRATE 50 MG TAB PO SCH (09:18)
--- NOTE | 2020-05-10 09:18 | P.DS ---
Providers Date of admission: 05/05/20 12:18 Expected date of discharge: 05/10/20 Attending physician: Guille Berumen MD Consults: 05/05/20 12:06 Consult Physician Routine Consulting Provider: Fabio Moseley Consult Reason/Comments: Intractable back pain, sciatica Do you want consulting provider notified?: Yes 05/05/20 12:07 Consult Physician Routine Consulting Provider: Fabio Moseley Consult Reason/Comments: Lumbar pain w sciatica Do you want consulting provider notified?: Yes 05/05/20 12:09 Consult Physician Routine Consulting Provider: Luca Alcantar Consult Reason/Comments: diff w word finding, confusion, ?med effect Do you want consulting provider notified?: Yes 05/05/20 13:45 Consult Physician Routine Consulting Provider: Yane Payne Consult Reason/Comments: lumbar radiculopathy Do you want consulting provider notified?: Yes 05/06/20 10:01 Consult Physician Routine Consulting Provider: Kristie Chatterjee Consult Reason/Comments: ICA stenosis Do you want consulting provider notified?: Yes Primary care physician: [facility] Course: 75 years old female patient of Dr. Gupta with past medical history of coronary artery disease status post three-vessel coronary artery bypass graft in 1995, GERD, hyperlipidemia, hypertension, history of diverticulitis, constipation history of UTI, hypothyroidism, borderline diabetes, comes in today with acute on chronic left-sided sciatica for the past 6 months. Patient was undergoing physical therapy as outpatient for the past few weeks. She did have a mechanical fall 4 months ago in the garden there she tripped over a stone and hit her face. She denies any back injury in the past few weeks. She did have significant pain in her left leg for the past several days. She did went to physical therapy yesterday and had manipulation of the spine. The pain got worse after the physical therapy session and patient could not drive herself home. Patient's daughter drove her home. Patient is unable to walk or put weight on her lower extremity due to the extreme pain. Dr. Gupta was called yesterday for prescribed dexamethasone, Flexeril and Abiquiu for the pain. Patient slept well overnight and took first dose yesterday. Patient leg pain worsened this morning radiating to her left buttock and her left ankle. Since the pain had significantly worsened patient decided to come to the ER. She did receive morphine in the hospital with some improvement. Patient was also noted to have change in mental status including confusion. Son at bedside states that patient is usually very alert but since morning it appears patient is having a different conversation with her son and it takes a while for the patient to respond. She is noted to be incontinent and has word finding difficulty and delay in response to the questions. Brain CT was negative for any acute changes patient did have atrophic and chronic small vessel ischemic changes. Chest x- ray suggests I went very and suspected chronic changes with possible chronic bronchitis of chronic asthma and prior CABG changes. Labs were ordered the WBC of 8.7 hemoglobin 12.4 d-dimer 1.01 BUN of 38 creatinine 1.63 glucose of 172 UA was positive for leukocyte esterase and WBCs and hyaline cast. Patient initiated on Rocephin, IV fluids at 75 mL per hour. Neurology consulted because of change in mental status which appears likely secondary to the medications. Stat CT of the lumbar spine ordered to rule out herniation or fracture.. Ultrasound of the kidneys ordered as patient's acute kidney injury. Chemistry ordered and patient will be monitored in the MedSurg unit. 05/06: CT of the lumbar spine taken on 05/05/2020: L2-3 and L3-4 vacuum disc changes, posterior disc bulging, facet joint arthropathy, and ligamentum flavum hypertrophy resulting in mild central canal stenosis; L4-5 grade 1 spondylolisthesis, facet joint arthropathy, posterior disc bulging, and ligamentum flavum hypertrophy resulting in severe spinal canal stenosis; L5-S1 vacuum disc posterior bulging with bilateral neural foraminal encroachment. This morning, patient was able to recall Dr. Berumen's name. She states her pain continues to be terrible but has increased range of motion today to the lower extremities. She does state the Dilaudid helps quite a bit with her pain control. Word finding is improved today from yesterday. Patient has been seen by neurology with concern for Broca aphasia likely due to stroke and started on Plavix and baby aspirin once daily. MRI of the brain is ordered for today as well as 2-D echo. CT angiogram of the head and neck revealed plaque formation of 50 and probably 70% on the right internal carotid artery. Approximately 35% stenosis in the proximal left internal carotid artery. No significant intracranial angiographic abnormality. Consult added for vascular surgery and patient has been seen by Dr. Sommer and carotid duplex ordered.. Patient has been seen by pain management the patient will need to wait for 7 days of Plavix before any interventional pain management can be performed. Patient was also seen by orthopedic spine with plan for conservative management and follow-up in the office. Echocardiogram reveals borderline concentric left hypertrophy, EF 50-55%, mild mitral regurgitation, mild tricuspid regurgitation. PT has recommended home with homecare or subacute rehab. 05/07: Patient is found sitting up in bed complaining of lower back and left lower extremity pain and weakness. Patient is confused regarding plan of care. Patient was unsure that MRI of the brain was completed. MRI of the brain shows cerebral atrophy. White matter signal changes are nonspecific and could relate to chronic small vessel ischemia or demyelinating disease. No evidence of acute cortical infarct. Carotid Doppler shows no hemodynamic significant stenosis of the proximal internal carotid arteries by Doppler, no indirect measurement of carotic stenosis. Technologist reports technical difficult to tease with this exam. There is a marked redundancy present at the proximal internal carotid artery on the right. Digital subtraction angiography could be performed as indicated for better evaluation. Patient is still unable to ambulate. She does live alone. And concerned about taking care of herself. Discussion was had for subacute rehab and patient at this time declined. Patient is currently on Rocephin for bladder infection will be changed to an oral medication. 05/08: MRI of the lumbar spine showed osteoarthritis. No abscess noted. Patient states that she continues to have pain to the lower spine and down the left lower extremity. Patient was able to get up to the bathroom utilizing a walker however she is not able to ambulate down the franco or in the room. Patient continues to have significant amount of pain which she states Tylenol is not helping. Patient continues to refuse any subacute rehab at this time. Patient requests to be seen by Dr. Gupta before any determinations will be made. Patient was encouraged to continue to ambulate. 05/09: Patient is found sitting up in chair. Patient states that she was able to ambulate yesterday 60 feet and today 95 feet. Patient did have some pain with ambulation however it is improving. Patient denies any Confusion after given the steroids yesterday. She did take a Abiquiu last night and had nightmares. Patient is requesting not to take it anymore in the evening. Patient is still agreeable to go to subacute rehab tomorrow. 05/10:the patient is complaining of constipation and fleets enema will be given prior to discharge. She has done well over the weekend with physical therapy and requests to go home versus subacute rehab.the patient has been afebrile, blood pressure is been on the high side at 189/104 this morning repeat 116/86. Heart rate 88, pulse ox 90% on room air.magnesium is 1.8.patient will be discharged home today in follow-up with Dr. Paz within 1 week. Prescription for Tylenol 3 and gabapentin will be provided from the office. Assessment and Plan 1. acute thoracolumbar radiculopathy on the left. 2. acute toxic metabolic encephalopathy secondary to possible CVA with Broca aphasia. 3. acute renal failure likely secondary to dehydration and diuretics 4. UTI 5. history of coronary artery disease status post CABG in 1993 6. recurrent depression 7. history of hypothyroidism Discharge plan: home with [facility] Impression and plan of care have been directed as dictated by the signing physician. Monica Kearney nurse practitioner acting as scribe for signing physician. Patient Condition at Discharge: Good Plan - Discharge Summary Discharge Rx Participant: No New Discharge Prescriptions: New hydrALAZINE HCL [Apresoline] 50 mg PO BID #60 tab Lidocaine 5% Patch [Lidoderm 5% Patch] 1 patch TOPICAL DAILY #30 patch Atorvastatin [Lipitor] 80 mg PO DAILY #30 tab Gabapentin [Neurontin] 100 mg PO TID #0 cap Clopidogrel [Plavix] 75 mg PO DAILY #21 tab Doxycycline [Vibramycin] 100 mg PO BID #10 cap Continue Metoprolol Tartrate [Lopressor] 50 mg PO DAILY Ergocalciferol [Vitamin D2 (DRISDOL)] 50,000 unit PO Q14D Aspirin EC [Ecotrin Low Dose] 81 mg PO BID Omeprazole 40 mg PO DAILY Dexamethasone [Decadron] 4 mg PO BID Cranberry Fruit Concentrate [Azo Cranberry] 500 mg PO DAILY Citalopram Hydrobromide [CeleXA] 20 mg PO DAILY Acetaminophen-Codeine 300-30mg [Tylenol w/codeine #3] 1 tab PO Q8H PRN PRN Reason: Pain Levothyroxine Sodium [Synthroid] 50 mcg PO DAILY Hydrocortisone [Anusol-Hc] 1 applic RECTAL BID PRN PRN Reason: Pain Multivitamins, Thera [Multivitamin (formulary)] 1 tab PO DAILY LORazepam [Ativan] 1 mg PO HS Ezetimibe [Zetia] 10 mg PO DAILY Baclofen [Lioresal] 10 mg PO DAILY Discontinued HYDROcodone/APAP 5-325MG [Abiquiu 5-325] 1 tab PO Q6H PRN PRN Reason: Pain Triamterene-Hctz 37.5-25Mg [Dyazide 37.5-25 Capsule] 1 cap PO DAILY Atorvastatin [Lipitor] 40 mg PO DAILY Cyclobenzaprine [Flexeril] 10 mg PO TID PRN PRN Reason: Muscle Pain Discharge Medication List Acetaminophen-Codeine 300-30mg [Tylenol w/codeine #3] 1 tab PO Q8H PRN 05/05/20 [History] Aspirin EC [Ecotrin Low Dose] 81 mg PO BID 05/05/20 [History] Baclofen [Lioresal] 10 mg PO DAILY 05/05/20 [History] Citalopram Hydrobromide [CeleXA] 20 mg PO DAILY 05/05/20 [History] Cranberry Fruit Concentrate [Azo Cranberry] 500 mg PO DAILY 05/05/20 [History] Dexamethasone [Decadron] 4 mg PO BID 05/05/20 [History] Ergocalciferol [Vitamin D2 (DRISDOL)] 50,000 unit PO Q14D 05/05/20 [History] Ezetimibe [Zetia] 10 mg PO DAILY 05/05/20 [History] Hydrocortisone [Anusol-Hc] 1 applic RECTAL BID PRN 05/05/20 [History] LORazepam [Ativan] 1 mg PO HS 05/05/20 [History] Levothyroxine Sodium [Synthroid] 50 mcg PO DAILY 05/05/20 [History] Metoprolol Tartrate [Lopressor] 50 mg PO DAILY 05/05/20 [History] Multivitamins, Thera [Multivitamin (formulary)] 1 tab PO DAILY 05/05/20 [History] Omeprazole 40 mg PO DAILY 05/05/20 [History] Atorvastatin [Lipitor] 80 mg PO DAILY #30 tab 05/10/20 [Rx] Clopidogrel [Plavix] 75 mg PO DAILY #21 tab 05/10/20 [Rx] Doxycycline [Vibramycin] 100 mg PO BID #10 cap 05/10/20 [Rx] Gabapentin [Neurontin] 100 mg PO TID #0 cap 05/10/20 [Rx] Lidocaine 5% Patch [Lidoderm 5% Patch] 1 patch TOPICAL DAILY #30 patch 05/10/20 [Rx] hydrALAZINE HCL [Apresoline] 50 mg PO BID #60 tab 05/10/20 [Rx] Follow up Appointment(s)/Referral(s): [facility], [NON-STAFF] - Korey Gupta MD [Primary Care Provider] - 05/17/20 5:15 pm Ryan Mora PAC [PHYSICIAN MANAGER LOAN] - 05/31/20 10:30 am (Patient may follow-up with Ryan Mora PA-C or Dr. Stuart Moseley at [facility] in 3-4 weeks following discharge. ) [facility] Clinic,[facility] [NON-STAFF] - 1 Week Patient Instructions/Handouts: Urinary Tract Infection in Women (DC), Sciatica (DC) Discharge Disposition: HOME WITH HOME HEALTH SERVICES
[2020-05-10] MEDS: EZETIMIBE 10 MG TAB PO SCH (09:19)
[2020-05-10] MEDS: DOCUSATE 100 MG CAP PO SCH (09:19)
[2020-05-10] MEDS: GABAPENTIN 100 MG CAP PO SCH (09:19)
[2020-05-10] MEDS: LIDOCAINE 5% PATCH TOPICAL SCH (09:20)
[2020-05-10] MEDS: DOXYCYCLINE 100 MG CAP PO SCH (09:20)
[2020-05-10] MEDS ORDERED: hydrALAZINE HCL 50 MG TAB PO SCH (09:30)
[2020-05-10] MEDS: predniSONE 50 MG TAB PO SCH (09:30)
[2020-05-10] MEDS ORDERED: polyethylene glycoL 3350 17 GM POWD.PACK PO SCH (09:30)
[2020-05-10 15:36] VITALS: BP 161/84; PULSE 88; RESP 16; TEMP 98.6
--- NOTE | 2020-05-12 23:06 | CDI ---
Documentation Clarification Form Date: 05/13/2020 From: Francesco Luna Phone: If you have a question about this query, please contact Irma Santos, Cryptologic Technician Technical at [phone] between 8am and 5pm. Admit Date: 05/05/2020 Discharge Date: 05/10/2020 Patient Name: Alyssa Smalls Visit Number: [id number] ATTENTION: The Clinical Documentation Specialists (CDI) and [facility] Coding Staff appreciate your assistance in clarifying documentation. Please respond to the clarification below the line at the bottom and electronically sign. The CDI & [facility] Coding staff will review the response and follow-up if needed. Please note: Queries are made part of the Legal Health Record. If you have any questions, please contact the author of this message via ITS. Dear Chato Obrien MD., The patient presented with the Acute confusional state, Intractable low back pain, Sciatica, Renal insufficiency syndrome History/Risk Factors:UTI, JC, Hyperlipidemia, Hypothyroidism Clinical Indicators: AMS, Delirium, Toxic Encephalopathy Radiology findings: Cerebral atrophy.White matter signal changes are nonspecific and could relate to chronic small vessel ischemia or demyelinating disease.No evidence of acutecortical infarct. 05/09 Dr. Yo Cardenas mentioned as "acute toxic metabolic encephalopathy secondary to possible CVA with Broca aphasia.MRI of the brain, carotid duplex pending" 05/09 Dr. Luca Alcantar Mentioned as "Transient ischemic attack (transient episode of Broca aphasia)" Per DS "acute toxic metabolic encephalopathy secondary to possible CVA with Brocas aphasia.": In your professional opinion, can you please clarify the Brocas Aphasia related to CVA TIA Other, please specify Unable to determine TIA MTDD
== END 2020-05-10 15:25 | disposition home health service (06) | DRG 551 ==
LOC: EC 09:18 → 6NMEDSUR 12:09 → OBSVTOIN 12:18 → 3SCARD 20:05
PROVIDERS: ADMIT Internal Medicine; ATTEND Internal Medicine
DX: M47.25 Other spondylosis with radiculopathy, thoracolumbar region (principal); G92 Toxic encephalopathy; F33.9 Major depressive disorder, recurrent, unspecified; F05 Delirium due to known physiological condition; N17.9 Acute kidney failure, unspecified; N39.0 Urinary tract infection, site not specified; R47.01 Aphasia; G45.9 Transient cerebral ischemic attack, unspecified; K21.9 Gastro-esophageal reflux disease without esophagitis; I45.10 Unspecified right bundle-branch block; I25.10 Atherosclerotic heart disease of native coronary artery without angina pectoris; E78.5 Hyperlipidemia, unspecified; E03.9 Hypothyroidism, unspecified; E86.0 Dehydration; R40.2363 Coma scale, best motor response, obeys commands, at hospital admission; R40.2143 Coma scale, eyes open, spontaneous, at hospital admission; R40.2253 Coma scale, best verbal response, oriented, at hospital admission; I65.23 Occlusion and stenosis of bilateral carotid arteries; F41.9 Anxiety disorder, unspecified; G89.29 Other chronic pain; I10 Essential (primary) hypertension; K59.00 Constipation, unspecified; T50.2X5A Adverse effect of carbonic-anhydrase inhibitors, benzothiadiazides and other diuretics, initial encounter; M48.061 Spinal stenosis, lumbar region without neurogenic claudication; R73.03 Prediabetes; E66.9 Obesity, unspecified; Z79.01 Long term (current) use of anticoagulants; Z79.02 Long term (current) use of antithrombotics/antiplatelets; Z79.82 Long term (current) use of aspirin; Z79.890 Hormone replacement therapy; Z79.899 Other long term (current) drug therapy; Z90.710 Acquired absence of both cervix and uterus; Z87.891 Personal history of nicotine dependence; Z87.440 Personal history of urinary (tract) infections; Z87.01 Personal history of pneumonia (recurrent); Z95.1 Presence of aortocoronary bypass graft; Z90.49 Acquired absence of other specified parts of digestive tract; Z82.3 Family history of stroke; Z82.49 Family history of ischemic heart disease and other diseases of the circulatory system; Z98.890 Other specified postprocedural states; Z83.6 Family history of other diseases of the respiratory system; Z68.38 Body mass index [BMI] 38.0-38.9, adult
CPT/HCPCS: 36415; 70450; 70496; 70498; 70551; 71046; 72131; 72148; 76770; 80048; 80053; 80061; 81001; 82140; 82550; 82607; 82746; 82747; 83036; 83690; 83735; 84443; 85025; 85379; 93306; 93880; 96361; 96374; 96375; 99285

== ENCOUNTER → 2022-07-18 | Outpatient (CLI) | payer MEDICARE ==
--- NOTE | 2022-07-18 11:35 | P.SLEEP ---
History of Present Illness DATE: [] CONSULTATION/NEW PATIENT EVALUATION HISTORY OF PRESENT ILLNESS/SLEEP-WAKE EVALUATION: 77year old lady gentleman had been evaluated in the sleep center for possible obstructive sleep apnea hypopnea syndrome. SLEEP SCHEDULE: Usually sleep schedule from 11 PM to 9:30 AM. on weekdays [], during days off[]. FALLING ASLEEP: No problems with falling asleep, although patient has TV set and bedroom. DURING SLEEP: Patient has loud snoring and witnessed episodes of stop breathing during the sleep, wakes up from sleep up to 3 times with nocturia No history of hypnogogical hallucinations, sleep paralysis, or cataplexy. DURING THE DAY/WAKE STATE: During the day patient sometimes feels sleepiness. Forbes sleepiness scale is 7. Patient may take 1 nap at around 4 PM. PAST MEDICAL HISTORY: Hypertension, hyperlipidemia, hypothyroidism, coronary artery disease, depression. PAST SURGICAL HISTORY: CABG, cholecystectomy, appendectomy, ACL repair right side. MEDICATIONS: Metoprolol 50 mg once a day, Lipitor 40 mg once a day, Synthroid 50 g once a day, omeprazole 40 mg once a day, citalopram 20 mg once a day, aspirin 81 mg once a day, triamterene /hydrochlorothiazide. SOCIAL HISTORY: Positive for smoking in the past, quit about 20 years ago, alcohol consumption occasional. FAMILY HISTORY: Hypertension, heart problems, diabetes. REVIEW OF SYSTEMS: Loud snoring, multiple awakenings from sleep. No fevers. No double vision. No recent chest pain. No shortness of breath. No abdominal pain. No bleeding episodes. No blood in urine. No seizure episodes. PHYSICAL EXAMINATION: GENERAL: A pleasant patient without any distress. VITAL SIGNS: BP 116/78, HR 67, RR 18, weight 220 pounds, height 5 foot 3-1/2 inches, body mass index 38.3. HEENT: PERRLA, EOMI. Evaluation of oropharynx showed tongue protrudes midline, low position of soft palate Mallampati 4. NECK: Supple. No JVD. Thyroid is not palpable. 16-1/2 inches in circumference. LUNGS: Clear to percussion and to auscultation. Good air exchange. No wheezing or rhonchi. HEART: S1, S2 regular. No murmurs, gallops or rubs. ABDOMEN: Soft and nontender. Bowel sounds are present. No organomegaly appreciated. EXTREMITIES: No clubbing or cyanosis. FIELD ARTILLERY CREWMEMBER: Awake, alert, and oriented x3. Cranial nerves 2 to 7 intact. There is no fasciculation or atrophy noted. No focal deficits observed. ASSESSMENT: 1. Loud snoring, witnessed episodes of stop breathing during the sleep, multiple awakenings from sleep, extremely low position of soft palate Mallampati 4, wide neck. Obstructive sleep apnea hypopnea syndrome. 2. Obesity body mass index 38.3. 3 hypertension. 4. Coronary artery disease status post CABG. 5 hyperlipidemia. 6. Hypothyroidism. 7. History of depression. 8. Status post cholecystectomy. 9. Status post appendectomy. 10. Status post right ACL repair. PLAN: 1. Polysomnography for evaluation of patient's breathing during sleep. 2. CPAP/BiPAP titration if sleep study confirms obstructive sleep apnea- hypopnea syndrome. 3. Preferable position during sleep on the side. 4. No driving if patient feels any sleepiness. Patient is aware of civil and criminal liability for unsafe driving. 5. Sleep hygiene with regular sleep time for at least 7.5-8 hours. 6. Watching and losing weight. Thank you very much for referring this patient for consultation. Sincerely, Sarmad Ray MD, PhD, FAASM. Diplomat of [place] [employer], Sleep Medicine Board by [place] [employer] [place] [employer] Making Machine Operator of [facility] [place] Past Medical History Past Medical History: Coronary Artery Disease (CAD), GERD/Reflux, Hyperlipidemia, Hypertension, Pneumonia Additional Past Medical History / Comment(s): L side sciatica approximately past 6 months, "borderline diabetes", diverticular disease, constipation, past UTIs, occasional bilateral leg edema, hypothyroid. History of Any Multi-Drug Resistant Organisms: None Reported Past Surgical History: Appendectomy, Coronary Bypass/CABG, Heart Catheterization, Hysterectomy Additional Past Surgical History / Comment(s): 3 vessel CABG in 1995, colonoscopy Past Anesthesia/Blood Transfusion Reactions: No Reported Reaction Additional Past Anesthesia/Blood Transfusion Reaction / Comment(s): Unsure if pt received blood with CABG Past Psychological History: Anxiety Additional Psychological History / Comment(s): Pt resides alone. She has recently been using a walker. She normally drives and is independent. Smoking Status: Former smoker Past Alcohol Use History: Occasional Additional Past Alcohol Use History / Comment(s): Pt started smoking in 1965 and quit in 1995. She drinks wine occasionally, she states socially. Past Drug Use History: None Reported - Past Family History Father Family Medical History: Myocardial Infarction ([place]) Additional Family Medical History / Comment(s): Father from a [place] at the age of 56yrs. Mother Family Medical History: CVA/TIA, Respiratory Disorder Additional Family Medical History / Comment(s): Mother had TB prior to pt being born. Medications and Allergies Home Medications Medication Instructions Recorded Confirmed Type Acetaminophen-Codeine 300-30mg 1 tab PO Q8H PRN 05/05/20 05/05/20 History [Tylenol w/codeine #3] Aspirin EC [Ecotrin Low Dose] 81 mg PO BID 05/05/20 05/05/20 History Baclofen [Lioresal] 10 mg PO DAILY 05/05/20 05/05/20 History Citalopram Hydrobromide [CeleXA] 20 mg PO DAILY 05/05/20 05/05/20 History Cranberry Fruit Concentrate [Azo 500 mg PO DAILY 05/05/20 05/05/20 History Cranberry] Ergocalciferol [Vitamin D2 50,000 unit PO Q14D 05/05/20 05/05/20 History (DRISDOL)] Ezetimibe [Zetia] 10 mg PO DAILY 05/05/20 05/05/20 History Hydrocortisone [Anusol-Hc] 1 applic RECTAL BID PRN 05/05/20 05/05/20 History LORazepam [Ativan] 1 mg PO HS 05/05/20 05/05/20 History Levothyroxine Sodium [Synthroid] 50 mcg PO DAILY 05/05/20 05/05/20 History Metoprolol Tartrate [Lopressor] 50 mg PO DAILY 05/05/20 05/05/20 History Multivitamins, Thera [Multivitamin 1 tab PO DAILY 05/05/20 05/05/20 History (formulary)] Omeprazole 40 mg PO DAILY 05/05/20 05/05/20 History dexAMETHasone [Decadron] 4 mg PO BID 05/05/20 05/05/20 History Atorvastatin [Lipitor] 80 mg PO DAILY #30 tab 05/10/20 Rx Clopidogrel [Plavix] 75 mg PO DAILY #21 tab 05/10/20 Rx Doxycycline [Vibramycin] 100 mg PO BID #10 cap 05/10/20 Rx Gabapentin [Neurontin] 100 mg PO TID #0 cap 05/10/20 Rx Lidocaine 5% Patch [Lidoderm 5% 1 patch TOPICAL DAILY #30 patch 05/10/20 Rx Patch] hydrALAZINE HCL [Apresoline] 50 mg PO BID #60 tab 05/10/20 Rx Allergies Allergy/AdvReac Type Severity Reaction Status Date / Time No Known Allergies Allergy Verified 05/05/20 11:29 Sleep Note - Sleep Note Sleep Note: Temperature: Pulse Rate: Respiratory Rate: Blood Pressure: SpO2: Height: Weight: BMI: Neck Circumference:
== END | disposition home or self-care (01) ==
LOC: SLEEP 10:55
PROVIDERS: ATTEND Internal Medicine
DX: G47.33 Obstructive sleep apnea (adult) (pediatric) (principal); E66.9 Obesity, unspecified; Z68.38 Body mass index [BMI] 38.0-38.9, adult; I10 Essential (primary) hypertension; I25.10 Atherosclerotic heart disease of native coronary artery without angina pectoris; E78.5 Hyperlipidemia, unspecified; E03.9 Hypothyroidism, unspecified; Z90.89 Acquired absence of other organs; Z98.890 Other specified postprocedural states; Z86.59 Personal history of other mental and behavioral disorders
CPT/HCPCS: 99211